=== PATIENT | male | born 1950 | race Caucasian/White ===

== ENCOUNTER 2019-07-09 18:53 | Inpatient (IN) | payer OTHER ==
--- OUTSIDE RECORDS SUMMARY | 2019-07-09 18:58 | XMS REPORT ---
:1950 [facility] Address [address] [place] [address] Care Team Providers Name Role Phone PAIGE BETTENCOURTNCER Unavailable Unavailable Problems This patient has no known problems. Allergies, Adverse Reactions, Alerts This patient has no known allergies or adverse reactions. Medications This patient has no known medications. Results Test Description Test Time Test Comments Text Results Atomic Results Result Comments MAGNESIUM 2016-12-26 05:16:00 Test Item Value Reference Range Comments MAGNESIUM (BEAKER) (test owod=291) 2.0 mg/dL 1.6-2.6 BASIC METABOLIC [id number] 05:16:00 Test Item Value Reference Range Comments SODIUM (BEAKER) (test 139 meq/L 136-145 shgn=310) POTASSIUM (BEAKER) (test 4.4 meq/L 3.5-5.1 niao=922) CHLORIDE (BEAKER) (test 107 meq/L 98-107 ubmp=705) CO2 (BEAKER) (test 25 meq/L 22-29 lyyf=071) BLOOD UREA NITROGEN 17 mg/dL 7-21 (BEAKER) (test rkdx=470) CREATININE (BEAKER) (test 0.82 mg/dL 0.57-1.25 nbva=354) GLUCOSE RANDOM (BEAKER) 106 mg/dL 70-105 (test xcgq=650) CALCIUM (BEAKER) (test 8.5 mg/dL 8.4-10.2 oiot=248) EGFR (BEAKER) (test 95 mL/min/1.73 sq m ESTIMATED GFR IS NOT qzax=7815) ACCURATE CREATININE CLEARANCE IN PREDICTING GLOMERULAR FILTRATION RATE. ESTIMATED GFR IS NOT APPLICABLE FOR DIALYSIS PATIENTS. CBC W/PLT COUNT & AUTO [id number] 04:59:00 Test Item Value Reference Range Comments WHITE BLOOD CELL COUNT (BEAKER) (test dwqy=123) 12.6 K/ L 4.0-10.0 RED BLOOD CELL COUNT (BEAKER) (test gbux=072) 3.12 M/ L 4.20-5.80 HEMOGLOBIN (BEAKER) (test nflf=795) 9.5 GM/DL 13.0-16.8 HEMATOCRIT (BEAKER) (test ozzz=366) 28.9 % 40.0-50.0 MEAN CORPUSCULAR VOLUME (BEAKER) (test hzhh=499) 92.8 fL 82.0-98.0 MEAN CORPUSCULAR HEMOGLOBIN (BEAKER) (test 30.5 pg 27.0-33.0 fulj=843) MEAN CORPUSCULAR HEMOGLOBIN CONC (BEAKER) (test 32.9 GM/DL 32.0-36.0 wqgv=255) RED CELL DISTRIBUTION WIDTH (BEAKER) (test 13.3 % 10.3-14.2 ppyv=290) PLATELET COUNT (BEAKER) (test eudo=447) 341 K/CU MM 150-430 MEAN PLATELET VOLUME (BEAKER) (test xmce=599) 7.3 fL 6.5-10.5 NUCLEATED RED BLOOD CELLS (BEAKER) (test 0 /100 WBC 0-0 xfdj=463) NEUTROPHILS RELATIVE PERCENT (BEAKER) (test 81 % gbdy=234) LYMPHOCYTES RELATIVE PERCENT (BEAKER) (test 11 % gwko=862) MONOCYTES RELATIVE PERCENT (BEAKER) (test 7 % nloi=058) EOSINOPHILS RELATIVE PERCENT (BEAKER) (test 1 % wbam=110) BASOPHILS RELATIVE PERCENT (BEAKER) (test 0 % syxm=979) NEUTROPHILS ABSOLUTE COUNT (BEAKER) (test 10.20 K/ L 1.80-8.00 fspx=722) LYMPHOCYTES ABSOLUTE COUNT (BEAKER) (test 1.42 K/ L 1.48-4.50 vzqd=939) MONOCYTES ABSOLUTE COUNT (BEAKER) (test 0.87 K/ L 0.00-1.30 tnek=011) EOSINOPHILS ABSOLUTE COUNT (BEAKER) (test 0.10 K/ L 0.00-0.50 tepa=962) BASOPHILS ABSOLUTE COUNT (BEAKER) (test 0.03 K/ L 0.00-0.20 mklv=615) 0.00PROTHROMBIN [id number] 04:50:00 Test Item Value Reference Range Comments PROTIME (BEAKER) (test vpen=345) 14.5 seconds 11.7-14.7 INR (BEAKER) (test flnp=271) 1.1 <=5.9 RECOMMENDED COUMADIN/WARFARIN INR THERAPY RANGESSTANDARD DOSE: 2.0 - 3.0 Includes: PROPHYLAXIS forvenous thrombosis, systemic embolization; TREATMENT for venous thrombosis and/or pulmonary embolus.HIGH RISK: Target INR is 2.5-3.5 for patients with mechanical heart valves.[id number] 04:55:00 Test Item Value Reference Range Comments MAGNESIUM (BEAKER) (test 2.1 mg/dL 1.6-2.6 Specimen slightly hemolyzed vwcb=869) BASIC METABOLIC [id number] 04:55:00 Test Item Value Reference Range Comments SODIUM (BEAKER) (test 138 meq/L 136-145 tudo=869) POTASSIUM (BEAKER) (test 4.6 meq/L 3.5-5.1 Specimen slightly rbmn=671) hemolyzed CHLORIDE (BEAKER) (test 102 meq/L 98-107 wkac=199) CO2 (BEAKER) (test 29 meq/L 22-29 nmbh=377) BLOOD UREA NITROGEN 13 mg/dL 7-21 (BEAKER) (test ahny=646) CREATININE (BEAKER) (test 0.87 mg/dL 0.57-1.25 Specimen slightly feit=276) hemolyzed GLUCOSE RANDOM (BEAKER) 175 mg/dL 70-105 (test gzxh=781) CALCIUM (BEAKER) (test 8.8 mg/dL 8.4-10.2 jvmm=081) EGFR (BEAKER) (test 88 mL/min/1.73 sq m ESTIMATED GFR IS NOT oscl=0578) ACCURATE CREATININE CLEARANCE IN PREDICTING GLOMERULAR FILTRATION RATE. ESTIMATED GFR IS NOT APPLICABLE FOR DIALYSIS PATIENTS. PROTHROMBIN [id number] 04:52:00 Test Item Value Reference Range Comments PROTIME (BEAKER) (test hsgw=356) 13.5 seconds 11.7-14.7 INR (BEAKER) (test lwul=733) 1.0 <=5.9 RECOMMENDED COUMADIN/WARFARIN INR THERAPY RANGESSTANDARD DOSE: 2.0 - 3.0 Includes: PROPHYLAXIS forvenous thrombosis, systemic embolization; TREATMENT for venous thrombosis and/or pulmonary embolus.HIGH RISK: Target INR is 2.5-3.5 for patients with mechanical heart valves.CBC W/PLT COUNT & AUTO [id number] 04:48:00 Test Item Value Reference Range Comments WHITE BLOOD CELL COUNT (BEAKER) (test atxd=791) 9.4 K/ L 4.0-10.0 RED BLOOD CELL COUNT (BEAKER) (test tbzx=095) 3.08 M/ L 4.20-5.80 HEMOGLOBIN (BEAKER) (test xhvb=245) 9.2 GM/DL 13.0-16.8 HEMATOCRIT (BEAKER) (test cuyt=280) 28.7 % 40.0-50.0 MEAN CORPUSCULAR VOLUME (BEAKER) (test wset=025) 93.1 fL 82.0-98.0 MEAN CORPUSCULAR HEMOGLOBIN (BEAKER) (test 30.0 pg 27.0-33.0 fhjy=999) MEAN CORPUSCULAR HEMOGLOBIN CONC (BEAKER) (test 32.2 GM/DL 32.0-36.0 haet=421) RED CELL DISTRIBUTION WIDTH (BEAKER) (test 11.9 % 10.3-14.2 qtaq=456) PLATELET COUNT (BEAKER) (test pxhf=160) 290 K/CU MM 150-430 MEAN PLATELET VOLUME (BEAKER) (test lkxm=753) 7.6 fL 6.5-10.5 NUCLEATED RED BLOOD CELLS (BEAKER) (test 0 /100 WBC 0-0 vrxf=615) NEUTROPHILS RELATIVE PERCENT (BEAKER) (test 85 % uffd=169) LYMPHOCYTES RELATIVE PERCENT (BEAKER) (test 8 % wsxd=598) MONOCYTES RELATIVE PERCENT (BEAKER) (test 6 % ehih=342) EOSINOPHILS RELATIVE PERCENT (BEAKER) (test 1 % cnqu=229) BASOPHILS RELATIVE PERCENT (BEAKER) (test 0 % pmjs=627) NEUTROPHILS ABSOLUTE COUNT (BEAKER) (test 7.99 K/ L 1.80-8.00 eqbd=743) LYMPHOCYTES ABSOLUTE COUNT (BEAKER) (test 0.74 K/ L 1.48-4.50 qyzh=678) MONOCYTES ABSOLUTE COUNT (BEAKER) (test 0.59 K/ L 0.00-1.30 awnx=578) EOSINOPHILS ABSOLUTE COUNT (BEAKER) (test 0.07 K/ L 0.00-0.50 xevc=615) BASOPHILS ABSOLUTE COUNT (BEAKER) (test 0.01 K/ L 0.00-0.20 jvsv=671) [id number] 15:22:00 Test Item Value Reference Range Comments POTASSIUM (BEAKER) (test tmxa=572) 4.1 meq/L 3.5-5.1 [id number] 15:22:00 Test Item Value Reference Range Comments MAGNESIUM (BEAKER) (test pcuq=790) 1.9 mg/dL 1.6-2.6 RESPIRATORY PANEL [id number] 13:24:00 Test Item Value Reference Range Comments HUMAN METAPNEUMOVIRUS (BEAKER) (test Not detected Not detected, Inconclusive ngbo=5057) RHINOVIRUS (BEAKER) (test svga=0527) Not detected Not detected, Inconclusive INFLUENZA A (BEAKER) (test Not detected Not detected, Inconclusive panq=6003) INFLUENZA A SUBTYPE H1 (BEAKER) Not detected Not detected, Inconclusive (test yusx=1760) INFLUENZA A SUBTYPE H3 (BEAKER) Not detected Not detected, Inconclusive (test tlig=9654) INFLUENZA A SUBTYPE H1-2009 (BEAKER) Not detected Not detected, Inconclusive (test kgho=8293) INFLUENZA B (BEAKER) (test Not detected Not detected, Inconclusive zkgx=4868) RESPIRATORY SYNCYTIAL VIRUS (BEAKER) Not detected Not detected, Inconclusive (test yylt=1977) PARAINFLUENZA VIRUS 1 (BEAKER) (test Not detected Not detected, Inconclusive agea=3304) PARAINFLUENZA VIRUS 2 (BEAKER) (test Not detected Not detected, Inconclusive modr=1944) PARAINFLUENZA VIRUS 3 (BEAKER) (test Not detected Not detected, Inconclusive oydm=6842) PARAINFLUENZA VIRUS 4 (BEAKER) (test Not detected Not detected, Inconclusive etel=9717) ADENOVIRUS (BEAKER) (test vmqk=2226) Not detected Not detected, Inconclusive CORONAVIRUS 229E (BEAKER) (test Not detected Not detected, Inconclusive xliu=1287) CORONAVIRUS HKU1 (BEAKER) (test Not detected Not detected, Inconclusive ewzj=3374) CORONAVIRUS NL63 (BEAKER) (test Not detected Not detected, Inconclusive oahv=0554) CORONAVIRUS OC43 (BEAKER) (test Not detected Not detected, Inconclusive jaeu=7092) BORDETELLA PERTUSSIS (BEAKER) (test Not detected Not detected, Inconclusive ivur=9848) CHLAMYDOPHILA PNEUMONIAE (BEAKER) Not detected Not detected, Inconclusive (test yenf=0053) MYCOPLASMA PNEUMONIAE (BEAKER) (test Not detected Not detected, Inconclusive xfuf=7728) CBC W/PLT COUNT & AUTO [id number] 05:41:00 Test Item Value Reference Range Comments WHITE BLOOD CELL COUNT (BEAKER) (test xyvz=151) 7.8 K/ L 4.0-10.0 RED BLOOD CELL COUNT (BEAKER) (test egwg=936) 3.02 M/ L 4.20-5.80 HEMOGLOBIN (BEAKER) (test rccr=864) 9.2 GM/DL 13.0-16.8 HEMATOCRIT (BEAKER) (test sqwr=534) 27.9 % 40.0-50.0 MEAN CORPUSCULAR VOLUME (BEAKER) (test entw=265) 92.4 fL 82.0-98.0 MEAN CORPUSCULAR HEMOGLOBIN (BEAKER) (test 30.5 pg 27.0-33.0 anoo=594) MEAN CORPUSCULAR HEMOGLOBIN CONC (BEAKER) (test 33.0 GM/DL 32.0-36.0 hfiw=144) RED CELL DISTRIBUTION WIDTH (BEAKER) (test 13.2 % 10.3-14.2 bbfg=425) PLATELET COUNT (BEAKER) (test afyt=697) 275 K/CU MM 150-430 MEAN PLATELET VOLUME (BEAKER) (test ejyz=550) 7.3 fL 6.5-10.5 NUCLEATED RED BLOOD CELLS (BEAKER) (test 0 /100 WBC 0-0 ugbq=857) NEUTROPHILS RELATIVE PERCENT (BEAKER) (test 64 % hyzm=993) LYMPHOCYTES RELATIVE PERCENT (BEAKER) (test 20 % cbvx=072) MONOCYTES RELATIVE PERCENT (BEAKER) (test 13 % fxcm=160) EOSINOPHILS RELATIVE PERCENT (BEAKER) (test 3 % jqaw=443) BASOPHILS RELATIVE PERCENT (BEAKER) (test 1 % tygj=632) NEUTROPHILS ABSOLUTE COUNT (BEAKER) (test 4.99 K/ L 1.80-8.00 hrtu=939) LYMPHOCYTES ABSOLUTE COUNT (BEAKER) (test 1.59 K/ L 1.48-4.50 szsq=573) MONOCYTES ABSOLUTE COUNT (BEAKER) (test 0.97 K/ L 0.00-1.30 qtao=003) EOSINOPHILS ABSOLUTE COUNT (BEAKER) (test 0.21 K/ L 0.00-0.50 mfgt=726) BASOPHILS ABSOLUTE COUNT (BEAKER) (test 0.04 K/ L 0.00-0.20 ggjm=685) 0.00PROTHROMBIN [id number] 05:13:00 Test Item Value Reference Range Comments PROTIME (BEAKER) (test msbo=153) 13.4 seconds 11.7-14.7 INR (BEAKER) (test jejl=328) 1.0 <=5.9 RECOMMENDED COUMADIN/WARFARIN INR THERAPY RANGESSTANDARD DOSE: 2.0 - 3.0 Includes: PROPHYLAXIS forvenous thrombosis, systemic embolization; TREATMENT for venous thrombosis and/or pulmonary embolus.HIGH RISK: Target INR is 2.5-3.5 for patients with mechanical heart valves.B-TYPE NATRIURETIC FACTOR (BNP)2016-11 05:11:00 Test Item Value Reference Range Comments B-TYPE NATRIURETIC PEPTIDE (BEAKER) (test 103 pg/mL 0-100 tjbf=900) [id number] 05:10:00 Test Item Value Reference Range Comments MAGNESIUM (BEAKER) (test scwh=023) 1.8 mg/dL 1.6-2.6 BASIC METABOLIC [id number] 05:10:00 Test Item Value Reference Range Comments SODIUM (BEAKER) (test 141 meq/L 136-145 dwih=377) POTASSIUM (BEAKER) (test 3.9 meq/L 3.5-5.1 ekbf=852) CHLORIDE (BEAKER) (test 102 meq/L 98-107 qyhc=182) CO2 (BEAKER) (test 33 meq/L 22-29 xcrs=238) BLOOD UREA NITROGEN 12 mg/dL 7-21 (BEAKER) (test rqom=700) CREATININE (BEAKER) (test 0.87 mg/dL 0.57-1.25 iped=469) GLUCOSE RANDOM (BEAKER) 110 mg/dL 70-105 (test ptoz=628) CALCIUM (BEAKER) (test 8.6 mg/dL 8.4-10.2 vbil=755) EGFR (BEAKER) (test 88 mL/min/1.73 sq m ESTIMATED GFR IS NOT wqms=1460) ACCURATE CREATININE CLEARANCE IN PREDICTING GLOMERULAR FILTRATION RATE. ESTIMATED GFR IS NOT APPLICABLE FOR DIALYSIS PATIENTS. STREP PNEUMONIAE [id number] 19:33:00 Test Item Value Reference Range Comments STREP PNEUMONIAE ANTIGEN Presumptive negative for Presumptive negative for (BEAKER) (test pneumococcal pneumonia - pneumococcal pneumonia - tlhq=3171) see comment see commen Presumptive negative for pneumococcal pneumonia, suggesting no current or recent pneumococcal infection. Infection due to S. pneumoniae cannot be ruled out since the antigen present in the sample may be below the detection limit of the test.BLOOD GAS, [id number] 13:05:00 Test Item Value Reference Range Comments PH ARTERIAL (BEAKER) (test bnaa=740) 7.50 7.35-7.45 PCO2 ARTERIAL (BEAKER) (test hsny=268) 46 mmHg 35-45 PO2 ARTERIAL (BEAKER) (test yivs=295) 81 mmHg 80-90 O2 SATURATION ARTERIAL (BEAKER) (test rify=271) 96.7 % 96.0-97.0 HCO3 ARTERIAL (BEAKER) (test ycgt=567) 35 mmol/L 21-29 BASE EXCESS ARTERIAL (BEAKER) (test mjpb=990) 10.1 mmol/L -2.0-3.0 PATIENT TEMPERATURE (BEAKER) (test dwlv=7411) 36.8 C FIO2 (BEAKER) (test sgac=4736) 28.0 % [id number] 06:22:00 Test Item Value Reference Range Comments MAGNESIUM (BEAKER) (test nxpn=879) 1.8 mg/dL 1.6-2.6 BASIC METABOLIC [id number] 06:22:00 Test Item Value Reference Range Comments SODIUM (BEAKER) (test 139 meq/L 136-145 qtbp=269) POTASSIUM (BEAKER) (test 4.1 meq/L 3.5-5.1 mfmi=550) CHLORIDE (BEAKER) (test 102 meq/L 98-107 ulad=426) CO2 (BEAKER) (test 29 meq/L 22-29 sbtx=340) BLOOD UREA NITROGEN 10 mg/dL 7-21 (BEAKER) (test nhzb=738) CREATININE (BEAKER) (test 0.83 mg/dL 0.57-1.25 jaos=406) GLUCOSE RANDOM (BEAKER) 98 mg/dL 70-105 (test oizw=557) CALCIUM (BEAKER) (test 8.4 mg/dL 8.4-10.2 bluc=880) EGFR (BEAKER) (test 93 mL/min/1.73 sq m ESTIMATED GFR IS NOT hyhy=7023) ACCURATE CREATININE CLEARANCE IN PREDICTING GLOMERULAR FILTRATION RATE. ESTIMATED GFR IS NOT APPLICABLE FOR DIALYSIS PATIENTS. CBC W/PLT COUNT & AUTO [id number] 06:19:00 Test Item Value Reference Range Comments WHITE BLOOD CELL COUNT (BEAKER) (test otfk=885) 6.6 K/ L 4.0-10.0 RED BLOOD CELL COUNT (BEAKER) (test bvvm=720) 3.09 M/ L 4.20-5.80 HEMOGLOBIN (BEAKER) (test xyfz=397) 9.2 GM/DL 13.0-16.8 HEMATOCRIT (BEAKER) (test yhky=096) 28.8 % 40.0-50.0 MEAN CORPUSCULAR VOLUME (BEAKER) (test eywu=559) 93.1 fL 82.0-98.0 MEAN CORPUSCULAR HEMOGLOBIN (BEAKER) (test 29.8 pg 27.0-33.0 zunk=472) MEAN CORPUSCULAR HEMOGLOBIN CONC (BEAKER) (test 32.0 GM/DL 32.0-36.0 jeol=001) RED CELL DISTRIBUTION WIDTH (BEAKER) (test 12.0 % 10.3-14.2 rvtk=071) PLATELET COUNT (BEAKER) (test uvfe=676) 242 K/CU MM 150-430 MEAN PLATELET VOLUME (BEAKER) (test chsp=600) 7.2 fL 6.5-10.5 NUCLEATED RED BLOOD CELLS (BEAKER) (test 0 /100 WBC 0-0 baoz=778) NEUTROPHILS RELATIVE PERCENT (BEAKER) (test 60 % vvck=427) LYMPHOCYTES RELATIVE PERCENT (BEAKER) (test 21 % uukl=878) MONOCYTES RELATIVE PERCENT (BEAKER) (test 15 % pxqi=651) EOSINOPHILS RELATIVE PERCENT (BEAKER) (test 3 % pldr=584) BASOPHILS RELATIVE PERCENT (BEAKER) (test 1 % wzbm=802) NEUTROPHILS ABSOLUTE COUNT (BEAKER) (test 3.99 K/ L 1.80-8.00 enbr=194) LYMPHOCYTES ABSOLUTE COUNT (BEAKER) (test 1.41 K/ L 1.48-4.50 jicc=942) MONOCYTES ABSOLUTE COUNT (BEAKER) (test 0.98 K/ L 0.00-1.30 zglx=992) EOSINOPHILS ABSOLUTE COUNT (BEAKER) (test 0.19 K/ L 0.00-0.50 gvpn=142) BASOPHILS ABSOLUTE COUNT (BEAKER) (test 0.03 K/ L 0.00-0.20 hkeu=975) 0.00PROTHROMBIN [id number] 05:55:00 Test Item Value Reference Range Comments PROTIME (BEAKER) (test xaxi=860) 13.2 seconds 11.7-14.7 INR (BEAKER) (test lfig=855) 1.0 <=5.9 RECOMMENDED COUMADIN/WARFARIN INR THERAPY RANGESSTANDARD DOSE: 2.0 - 3.0 Includes: PROPHYLAXIS forvenous thrombosis, systemic embolization; TREATMENT for venous thrombosis and/or pulmonary embolus.HIGH RISK: Target INR is 2.5-3.5 for patients with mechanical heart valves.[id number] 05:39:00 Test Item Value Reference Range Comments MAGNESIUM (BEAKER) (test ydde=420) 1.7 mg/dL 1.6-2.6 BASIC METABOLIC [id number] 05:39:00 Test Item Value Reference Range Comments SODIUM (BEAKER) (test 139 meq/L 136-145 cugz=642) POTASSIUM (BEAKER) (test 3.9 meq/L 3.5-5.1 dkzx=271) CHLORIDE (BEAKER) (test 104 meq/L 98-107 bowq=459) CO2 (BEAKER) (test 30 meq/L 22-29 kqxx=200) BLOOD UREA NITROGEN 9 mg/dL 7-21 (BEAKER) (test bjov=180) CREATININE (BEAKER) (test 0.79 mg/dL 0.57-1.25 ihzx=199) GLUCOSE RANDOM (BEAKER) 101 mg/dL 70-105 (test xxrb=208) CALCIUM (BEAKER) (test 8.0 mg/dL 8.4-10.2 phct=174) EGFR (BEAKER) (test 99 mL/min/1.73 sq m ESTIMATED GFR IS NOT wvza=6077) ACCURATE CREATININE CLEARANCE IN PREDICTING GLOMERULAR FILTRATION RATE. ESTIMATED GFR IS NOT APPLICABLE FOR DIALYSIS PATIENTS. CBC W/PLT COUNT & AUTO [id number] 05:33:00 Test Item Value Reference Range Comments WHITE BLOOD CELL COUNT (BEAKER) (test mkcg=062) 6.5 K/ L 4.0-10.0 RED BLOOD CELL COUNT (BEAKER) (test blqw=471) 2.69 M/ L 4.20-5.80 HEMOGLOBIN (BEAKER) (test aowv=836) 8.2 GM/DL 13.0-16.8 HEMATOCRIT (BEAKER) (test zhtu=196) 25.3 % 40.0-50.0 MEAN CORPUSCULAR VOLUME (BEAKER) (test iycx=405) 94.0 fL 82.0-98.0 MEAN CORPUSCULAR HEMOGLOBIN (BEAKER) (test 30.4 pg 27.0-33.0 uwma=815) MEAN CORPUSCULAR HEMOGLOBIN CONC (BEAKER) (test 32.3 GM/DL 32.0-36.0 mscf=204) RED CELL DISTRIBUTION WIDTH (BEAKER) (test 12.0 % 10.3-14.2 uzrf=490) PLATELET COUNT (BEAKER) (test njub=939) 201 K/CU MM 150-430 MEAN PLATELET VOLUME (BEAKER) (test bzar=306) 7.0 fL 6.5-10.5 NUCLEATED RED BLOOD CELLS (BEAKER) (test 0 /100 WBC 0-0 bmjp=684) NEUTROPHILS RELATIVE PERCENT (BEAKER) (test 59 % ihgz=203) LYMPHOCYTES RELATIVE PERCENT (BEAKER) (test 23 % cajw=178) MONOCYTES RELATIVE PERCENT (BEAKER) (test 15 % vgsh=819) EOSINOPHILS RELATIVE PERCENT (BEAKER) (test 2 % ndva=002) BASOPHILS RELATIVE PERCENT (BEAKER) (test 0 % brni=808) NEUTROPHILS ABSOLUTE COUNT (BEAKER) (test 3.89 K/ L 1.80-8.00 nbmw=929) LYMPHOCYTES ABSOLUTE COUNT (BEAKER) (test 1.52 K/ L 1.48-4.50 qpoo=961) MONOCYTES ABSOLUTE COUNT (BEAKER) (test 0.98 K/ L 0.00-1.30 tukv=533) EOSINOPHILS ABSOLUTE COUNT (BEAKER) (test 0.13 K/ L 0.00-0.50 zqwe=801) BASOPHILS ABSOLUTE COUNT (BEAKER) (test 0.02 K/ L 0.00-0.20 caju=308) 0.00PROTHROMBIN [id number] 05:19:00 Test Item Value Reference Range Comments PROTIME (BEAKER) (test qmcx=383) 14.6 seconds 11.7-14.7 INR (BEAKER) (test ypwj=065) 1.2 <=5.9 RECOMMENDED COUMADIN/WARFARIN INR THERAPY RANGESSTANDARD DOSE: 2.0 - 3.0 Includes: PROPHYLAXIS forvenous thrombosis, systemic embolization; TREATMENT for venous thrombosis and/or pulmonary embolus.HIGH RISK: Target INR is 2.5-3.5 for patients with mechanical heart valves.CBC W/PLT COUNT & AUTO [id number] 06:46:00 Test Item Value Reference Range Comments WHITE BLOOD CELL COUNT (BEAKER) (test wbuh=054) 8.3 K/ L 4.0-10.0 RED BLOOD CELL COUNT (BEAKER) (test ovel=169) 2.73 M/ L 4.20-5.80 HEMOGLOBIN (BEAKER) (test gunf=681) 8.3 GM/DL 13.0-16.8 HEMATOCRIT (BEAKER) (test hlhf=057) 25.7 % 40.0-50.0 MEAN CORPUSCULAR VOLUME (BEAKER) (test ztie=786) 94.3 fL 82.0-98.0 MEAN CORPUSCULAR HEMOGLOBIN (BEAKER) (test 30.5 pg 27.0-33.0 fnnj=810) MEAN CORPUSCULAR HEMOGLOBIN CONC (BEAKER) (test 32.4 GM/DL 32.0-36.0 vovu=312) RED CELL DISTRIBUTION WIDTH (BEAKER) (test 11.9 % 10.3-14.2 wygg=921) PLATELET COUNT (BEAKER) (test rmhd=234) 182 K/CU MM 150-430 MEAN PLATELET VOLUME (BEAKER) (test yxbh=060) 8.2 fL 6.5-10.5 NUCLEATED RED BLOOD CELLS (BEAKER) (test 0 /100 WBC 0-0 pwig=238) NEUTROPHILS RELATIVE PERCENT (BEAKER) (test 71 % vtsk=625) LYMPHOCYTES RELATIVE PERCENT (BEAKER) (test 13 % nbvt=028) MONOCYTES RELATIVE PERCENT (BEAKER) (test 14 % bkqo=681) EOSINOPHILS RELATIVE PERCENT (BEAKER) (test 2 % sidl=240) BASOPHILS RELATIVE PERCENT (BEAKER) (test 0 % lkug=529) NEUTROPHILS ABSOLUTE COUNT (BEAKER) (test 5.91 K/ L 1.80-8.00 kihd=289) LYMPHOCYTES ABSOLUTE COUNT (BEAKER) (test 1.09 K/ L 1.48-4.50 xajd=668) MONOCYTES ABSOLUTE COUNT (BEAKER) (test 1.14 K/ L 0.00-1.30 zagt=770) EOSINOPHILS ABSOLUTE COUNT (BEAKER) (test 0.17 K/ L 0.00-0.50 zuer=570) BASOPHILS ABSOLUTE COUNT (BEAKER) (test 0.02 K/ L 0.00-0.20 glwg=294) [id number] 05:34:00 Test Item Value Reference Range Comments MAGNESIUM (BEAKER) (test ptpc=429) 2.0 mg/dL 1.6-2.6 BASIC METABOLIC [id number] 05:34:00 Test Item Value Reference Range Comments SODIUM (BEAKER) (test 139 meq/L 136-145 qhwb=084) POTASSIUM (BEAKER) (test 4.0 meq/L 3.5-5.1 lbhx=394) CHLORIDE (BEAKER) (test 107 meq/L 98-107 aqjw=087) CO2 (BEAKER) (test 27 meq/L 22-29 enym=991) BLOOD UREA NITROGEN 9 mg/dL 7-21 (BEAKER) (test kcjn=639) CREATININE (BEAKER) (test 0.81 mg/dL 0.57-1.25 dpfn=550) GLUCOSE RANDOM (BEAKER) 103 mg/dL 70-105 (test fiix=796) CALCIUM (BEAKER) (test 8.0 mg/dL 8.4-10.2 kgwe=832) EGFR (BEAKER) (test 96 mL/min/1.73 sq m ESTIMATED GFR IS NOT pkev=1355) ACCURATE CREATININE CLEARANCE IN PREDICTING GLOMERULAR FILTRATION RATE. ESTIMATED GFR IS NOT APPLICABLE FOR DIALYSIS PATIENTS. PROTHROMBIN [id number] 05:21:00 Test Item Value Reference Range Comments PROTIME (BEAKER) (test xpla=667) 14.5 seconds 11.7-14.7 INR (BEAKER) (test blcr=200) 1.1 <=5.9 RECOMMENDED COUMADIN/WARFARIN INR THERAPY RANGESSTANDARD DOSE: 2.0 - 3.0 Includes: PROPHYLAXIS forvenous thrombosis, systemic embolization; TREATMENT for venous thrombosis and/or pulmonary embolus.HIGH RISK: Target INR is 2.5-3.5 for patients with mechanical heart valves.VANCOMYCIN LEVEL, [id number] 17: 26:00 Test Item Value Reference Range Comments VANCOMYCIN TROUGH (BEAKER) (test dcql=005) 15.7 ug/mL 10.0-20.0 [id number] 17:22:00 Test Item Value Reference Range Comments POTASSIUM (BEAKER) (test ppyh=220) 3.8 meq/L 3.5-5.1 [id number] 17:22:00 Test Item Value Reference Range Comments MAGNESIUM (BEAKER) (test juqy=757) 2.0 mg/dL 1.6-2.6 CBC W/PLT COUNT & AUTO [id number] 05:09:00 Test Item Value Reference Range Comments WHITE BLOOD CELL COUNT (BEAKER) (test pxxd=695) 8.5 K/ L 4.0-10.0 RED BLOOD CELL COUNT (BEAKER) (test jlap=331) 2.87 M/ L 4.20-5.80 HEMOGLOBIN (BEAKER) (test aqil=099) 8.6 GM/DL 13.0-16.8 HEMATOCRIT (BEAKER) (test zbrb=969) 26.9 % 40.0-50.0 MEAN CORPUSCULAR VOLUME (BEAKER) (test rbfv=246) 93.9 fL 82.0-98.0 MEAN CORPUSCULAR HEMOGLOBIN (BEAKER) (test 29.9 pg 27.0-33.0 jflc=423) MEAN CORPUSCULAR HEMOGLOBIN CONC (BEAKER) (test 31.8 GM/DL 32.0-36.0 bhrt=566) RED CELL DISTRIBUTION WIDTH (BEAKER) (test 11.9 % 10.3-14.2 ktkj=031) PLATELET COUNT (BEAKER) (test wbyg=628) 154 K/CU MM 150-430 MEAN PLATELET VOLUME (BEAKER) (test wcdt=480) 8.2 fL 6.5-10.5 NUCLEATED RED BLOOD CELLS (BEAKER) (test 0 /100 WBC 0-0 rfph=880) NEUTROPHILS RELATIVE PERCENT (BEAKER) (test 70 % qvsq=933) LYMPHOCYTES RELATIVE PERCENT (BEAKER) (test 13 % uwuz=065) MONOCYTES RELATIVE PERCENT (BEAKER) (test 15 % hvht=392) EOSINOPHILS RELATIVE PERCENT (BEAKER) (test 2 % gqlc=710) BASOPHILS RELATIVE PERCENT (BEAKER) (test 0 % kdoc=821) NEUTROPHILS ABSOLUTE COUNT (BEAKER) (test 5.95 K/ L 1.80-8.00 rgvc=192) LYMPHOCYTES ABSOLUTE COUNT (BEAKER) (test 1.07 K/ L 1.48-4.50 ynuq=775) MONOCYTES ABSOLUTE COUNT (BEAKER) (test 1.27 K/ L 0.00-1.30 myct=047) EOSINOPHILS ABSOLUTE COUNT (BEAKER) (test 0.16 K/ L 0.00-0.50 wglt=460) BASOPHILS ABSOLUTE COUNT (BEAKER) (test 0.03 K/ L 0.00-0.20 rgvn=740) 0.00BASIC METABOLIC [id number] 05:05:00 Test Item Value Reference Range Comments SODIUM (BEAKER) (test 137 meq/L 136-145 buof=041) POTASSIUM (BEAKER) (test 3.6 meq/L 3.5-5.1 gbrc=789) CHLORIDE (BEAKER) (test 105 meq/L 98-107 mieq=450) CO2 (BEAKER) (test 28 meq/L 22-29 tukp=906) BLOOD UREA NITROGEN 9 mg/dL 7-21 (BEAKER) (test kuxd=354) CREATININE (BEAKER) (test 0.83 mg/dL 0.57-1.25 efet=102) GLUCOSE RANDOM (BEAKER) 118 mg/dL 70-105 (test aqlv=997) CALCIUM (BEAKER) (test 7.7 mg/dL 8.4-10.2 nblb=243) EGFR (BEAKER) (test 93 mL/min/1.73 sq m ESTIMATED GFR IS NOT aiah=7020) ACCURATE CREATININE CLEARANCE IN PREDICTING GLOMERULAR FILTRATION RATE. ESTIMATED GFR IS NOT APPLICABLE FOR DIALYSIS PATIENTS. [id number] 05:04:00 Test Item Value Reference Range Comments MAGNESIUM (BEAKER) (test dyep=225) 2.0 mg/dL 1.6-2.6 PROTHROMBIN TIME/[id number] 04:53:00 Test Item Value Reference Range Comments PROTIME (BEAKER) (test jibq=894) 14.7 seconds 11.7-14.7 INR (BEAKER) (test fewf=635) 1.2 <=5.9 RECOMMENDED COUMADIN/WARFARIN INR THERAPY RANGESSTANDARD DOSE: 2.0 - 3.0 Includes: PROPHYLAXIS forvenous thrombosis, systemic embolization; TREATMENT for venous thrombosis and/or pulmonary embolus.HIGH RISK: Target INR is 2.5-3.5 for patients with mechanical heart valves.TISSUE [id number] 14:10: 00Surgical Pathology Report Case: [id number] Authorizing Provider: Paige Bettencourt MD Collected : 12/17/2016 1808 Ordering Location: [address] Received: 12/18/2016 0711 Pathologist: Gris Castro MD Specimens: A) - Lung, Right Upper Lobe, right upper lobe resection B) - Lung, Right Upper Lobe, right upper lobe wedge no. 2 A. LUNG, RIGHT UPPER LOBE, WEDGE RESECTION: - DIFFUSE, PROMINENTLY PERIPHERAL FIBROSIS, WITH CHRONIC INFLAMMATION, HEMORRHAGE AND REACTIVE CHANGES,CONSISTENT WITH PULMONARY BLEBS , AND REACTION TO PNEUMOTHORAX B. LUNG, RIGHT UPPER LOBE, WEDGE RESECTION # 2: - DIFFUSE PROMINENTLY PERIPHERAL FIBROSIS, CHRONIC INFLAMMATION, HEMORRHAGE AND REACTIVE CHANGES; FEATURES OF PULMONARY BLEBS, REACTION TO PNEUMOTHORAX Some of the changes in this patient's lungs are consistent with chronic obstructive pulmonary disease, with varying amounts of fibrosis, emphysematous changes and hemosiderin, and reactive changes. [id number] X 2Per [facility] notes: Thaddeus Ferguson is a 66 y.o. male with PMH significant for COPD , who recently had aspontaneous pneumothorax approximately 2 weeks ago, and presented again this week to an OSH with recurrent pneumothorax on the right in the setting of a COPD exacerbation. Operative finding: numerous blebs in the right upper lobe apex.A. Right upper lobe wedgeB. Right upper lobe wedge # 2Specimen is received in two containers both labeled with the patient's information and received without formalin.Specimen A: Labeled "right upper lobe wedge" consists of a 5 gm wedge resection of lung measuring 5 x 1x 0.8 cm. The lung pleura is dark-red and intact. The staple line is inked blue. The specimen is serially sectioned showing homogeneous, garcia-hilliard cut surface. The specimen shows no distinct mass. The tissue is entirely submitted in A1 through A4.Specimen B: Labeled "right upper lobe wedge #2" consistsof a 4 gm wedge resection of lung measuring 4 x 1 x 1 cm. The staple line is inked blue. The pleura is garcia-red and intact. The cut surface is homogeneously garcia-red and spongy. There are no firm or suspicious areas seen. The specimen is entirely submitted in B1 through B3. CG/ewH&E stained sectionsshow pleural tissue and lung parenchyma, focally with some skeletal muscle, consistent with chest wall adhesions. There is diffuse fibrotic tissue, consistent with pleural blebs chronic inflammation, hemorrhage and mesothelial reactive changes. No malignancy is identified.[id number] 13:10:00 Test Item Value Reference Range Comments POTASSIUM (BEAKER) (test dnfm=226) 3.8 meq/L 3.5-5.1 [id number] 13:10:00 Test Item Value Reference Range Comments MAGNESIUM (BEAKER) (test whov=113) 1.9 mg/dL 1.6-2.6 BASIC METABOLIC [id number] 04:47:00 Test Item Value Reference Range Comments SODIUM (BEAKER) (test 138 meq/L 136-145 wnun=520) POTASSIUM (BEAKER) (test 3.7 meq/L 3.5-5.1 afgu=086) CHLORIDE (BEAKER) (test 103 meq/L 98-107 jeie=056) CO2 (BEAKER) (test 29 meq/L 22-29 twzn=903) BLOOD UREA NITROGEN 13 mg/dL 7-21 (BEAKER) (test kjzt=610) CREATININE (BEAKER) (test 0.76 mg/dL 0.57-1.25 ynba=440) GLUCOSE RANDOM (BEAKER) 116 mg/dL 70-105 (test abcu=897) CALCIUM (BEAKER) (test 7.9 mg/dL 8.4-10.2 xmud=454) EGFR (BEAKER) (test 103 mL/min/1.73 sq m ESTIMATED GFR IS NOT wugl=5198) ACCURATE CREATININE CLEARANCE IN PREDICTING GLOMERULAR FILTRATION RATE. ESTIMATED GFR IS NOT APPLICABLE FOR DIALYSIS PATIENTS. [id number] 04:46:00 Test Item Value Reference Range Comments MAGNESIUM (BEAKER) (test qrnw=212) 2.0 mg/dL 1.6-2.6 CBC W/PLT COUNT & AUTO [id number] 04:43:00 Test Item Value Reference Range Comments WHITE BLOOD CELL COUNT (BEAKER) (test twym=145) 9.4 K/ L 4.0-10.0 RED BLOOD CELL COUNT (BEAKER) (test hjig=000) 2.93 M/ L 4.20-5.80 HEMOGLOBIN (BEAKER) (test cmsd=891) 9.0 GM/DL 13.0-16.8 HEMATOCRIT (BEAKER) (test dvyn=271) 27.1 % 40.0-50.0 MEAN CORPUSCULAR VOLUME (BEAKER) (test npsc=490) 92.5 fL 82.0-98.0 MEAN CORPUSCULAR HEMOGLOBIN (BEAKER) (test 30.7 pg 27.0-33.0 bjkf=418) MEAN CORPUSCULAR HEMOGLOBIN CONC (BEAKER) (test 33.2 GM/DL 32.0-36.0 wcpo=851) RED CELL DISTRIBUTION WIDTH (BEAKER) (test 11.8 % 10.3-14.2 fqhc=309) PLATELET COUNT (BEAKER) (test ujjy=640) 147 K/CU MM 150-430 MEAN PLATELET VOLUME (BEAKER) (test awtp=757) 8.1 fL 6.5-10.5 NUCLEATED RED BLOOD CELLS (BEAKER) (test 0 /100 WBC 0-0 dtyh=942) NEUTROPHILS RELATIVE PERCENT (BEAKER) (test 71 % fatn=577) LYMPHOCYTES RELATIVE PERCENT (BEAKER) (test 11 % csqu=009) MONOCYTES RELATIVE PERCENT (BEAKER) (test 16 % ypab=086) EOSINOPHILS RELATIVE PERCENT (BEAKER) (test 1 % mcap=636) BASOPHILS RELATIVE PERCENT (BEAKER) (test 0 % tjrv=604) NEUTROPHILS ABSOLUTE COUNT (BEAKER) (test 6.70 K/ L 1.80-8.00 zvio=494) LYMPHOCYTES ABSOLUTE COUNT (BEAKER) (test 1.07 K/ L 1.48-4.50 omru=878) MONOCYTES ABSOLUTE COUNT (BEAKER) (test 1.48 K/ L 0.00-1.30 syju=423) EOSINOPHILS ABSOLUTE COUNT (BEAKER) (test 0.14 K/ L 0.00-0.50 rsvr=155) BASOPHILS ABSOLUTE COUNT (BEAKER) (test 0.02 K/ L 0.00-0.20 aerd=732) 0.00PROTHROMBIN [id number] 04:40:00 Test Item Value Reference Range Comments PROTIME (BEAKER) (test rolv=928) 15.5 seconds 11.7-14.7 INR (BEAKER) (test vvcc=922) 1.2 <=5.9 RECOMMENDED COUMADIN/WARFARIN INR THERAPY RANGESSTANDARD DOSE: 2.0 - 3.0 Includes: PROPHYLAXIS forvenous thrombosis, systemic embolization; TREATMENT for venous thrombosis and/or pulmonary embolus.HIGH RISK: Target INR is 2.5-3.5 for patients with mechanical heart valves.BASIC METABOLIC [id number] 16:11: 00 Test Item Value Reference Range Comments SODIUM (BEAKER) (test 137 meq/L 136-145 okjd=773) POTASSIUM (BEAKER) (test 4.0 meq/L 3.5-5.1 sejl=013) CHLORIDE (BEAKER) (test 103 meq/L 98-107 etrx=460) CO2 (BEAKER) (test 29 meq/L 22-29 yvkn=266) BLOOD UREA NITROGEN 17 mg/dL 7-21 (BEAKER) (test hmtl=790) CREATININE (BEAKER) (test 0.76 mg/dL 0.57-1.25 zazq=523) GLUCOSE RANDOM (BEAKER) 122 mg/dL 70-105 (test ldei=703) CALCIUM (BEAKER) (test 8.1 mg/dL 8.4-10.2 ocjv=450) EGFR (BEAKER) (test 103 mL/min/1.73 sq m ESTIMATED GFR IS NOT prvq=7567) ACCURATE CREATININE CLEARANCE IN PREDICTING GLOMERULAR FILTRATION RATE. ESTIMATED GFR IS NOT APPLICABLE FOR DIALYSIS PATIENTS. BLOOD GAS, [id number] 09:14:00 Test Item Value Reference Range Comments PH ARTERIAL (BEAKER) (test mtkk=486) 7.48 7.35-7.45 PCO2 ARTERIAL (BEAKER) (test phiy=843) 30 mmHg 35-45 PO2 ARTERIAL (BEAKER) (test bbob=430) 149 mmHg 80-90 O2 SATURATION ARTERIAL (BEAKER) (test kkzk=718) 99.1 % 96.0-97.0 HCO3 ARTERIAL (BEAKER) (test dgru=719) 22 mmol/L 21-29 BASE EXCESS ARTERIAL (BEAKER) (test aluq=178) -0.5 mmol/L -2.0-3.0 PATIENT TEMPERATURE (BEAKER) (test oaxf=0876) 37.0 C FIO2 (BEAKER) (test xmxz=6138) 40.0 % CBC W/PLT COUNT & AUTO [id number] 03:51:00 Test Item Value Reference Range Comments WHITE BLOOD CELL COUNT (BEAKER) (test kucb=407) 9.5 K/ L 4.0-10.0 RED BLOOD CELL COUNT (BEAKER) (test byyh=158) 3.45 M/ L 4.20-5.80 HEMOGLOBIN (BEAKER) (test tncu=255) 10.2 GM/DL 13.0-16.8 HEMATOCRIT (BEAKER) (test kcfd=550) 31.5 % 40.0-50.0 MEAN CORPUSCULAR VOLUME (BEAKER) (test daxv=965) 91.4 fL 82.0-98.0 MEAN CORPUSCULAR HEMOGLOBIN (BEAKER) (test 29.7 pg 27.0-33.0 vrmu=737) MEAN CORPUSCULAR HEMOGLOBIN CONC (BEAKER) (test 32.5 GM/DL 32.0-36.0 cdwc=298) RED CELL DISTRIBUTION WIDTH (BEAKER) (test 13.0 % 10.3-14.2 puwj=649) PLATELET COUNT (BEAKER) (test refh=120) 173 K/CU MM 150-430 MEAN PLATELET VOLUME (BEAKER) (test jwqe=834) 8.1 fL 6.5-10.5 NUCLEATED RED BLOOD CELLS (BEAKER) (test 0 /100 WBC 0-0 oaop=120) NEUTROPHILS RELATIVE PERCENT (BEAKER) (test 78 % vvad=448) LYMPHOCYTES RELATIVE PERCENT (BEAKER) (test 9 % himh=269) MONOCYTES RELATIVE PERCENT (BEAKER) (test 12 % iytd=642) EOSINOPHILS RELATIVE PERCENT (BEAKER) (test 1 % qrtd=478) BASOPHILS RELATIVE PERCENT (BEAKER) (test 0 % pfoo=420) NEUTROPHILS ABSOLUTE COUNT (BEAKER) (test 7.41 K/ L 1.80-8.00 mvoj=739) LYMPHOCYTES ABSOLUTE COUNT (BEAKER) (test 0.84 K/ L 1.48-4.50 lliy=493) MONOCYTES ABSOLUTE COUNT (BEAKER) (test 1.11 K/ L 0.00-1.30 akwz=236) EOSINOPHILS ABSOLUTE COUNT (BEAKER) (test 0.09 K/ L 0.00-0.50 rhwo=146) BASOPHILS ABSOLUTE COUNT (BEAKER) (test 0.02 K/ L 0.00-0.20 ygdh=016) 0.00PROTHROMBIN [id number] 03:50:00 Test Item Value Reference Range Comments PROTIME (BEAKER) (test jmcn=851) 13.6 seconds 11.7-14.7 INR (BEAKER) (test vtdw=142) 1.1 <=5.9 RECOMMENDED COUMADIN/WARFARIN INR THERAPY RANGESSTANDARD DOSE: 2.0 - 3.0 Includes: PROPHYLAXIS forvenous thrombosis, systemic embolization; TREATMENT for venous thrombosis and/or pulmonary embolus.HIGH RISK: Target INR is 2.5-3.5 for patients with mechanical heart valves.[id number] 03:48:00 Test Item Value Reference Range Comments MAGNESIUM (BEAKER) (test lbai=048) 2.2 mg/dL 1.6-2.6 BASIC METABOLIC [id number] 03:48:00 Test Item Value Reference Range Comments SODIUM (BEAKER) (test 136 meq/L 136-145 rmpv=658) POTASSIUM (BEAKER) (test 4.0 meq/L 3.5-5.1 ldyw=749) CHLORIDE (BEAKER) (test 102 meq/L 98-107 tqlz=664) CO2 (BEAKER) (test 26 meq/L 22-29 fhow=315) BLOOD UREA NITROGEN 15 mg/dL 7-21 (BEAKER) (test uukv=744) CREATININE (BEAKER) (test 0.83 mg/dL 0.57-1.25 bfhb=483) GLUCOSE RANDOM (BEAKER) 106 mg/dL 70-105 (test adxk=255) CALCIUM (BEAKER) (test 8.0 mg/dL 8.4-10.2 vspt=589) EGFR (BEAKER) (test 93 mL/min/1.73 sq m ESTIMATED GFR IS NOT lquw=3954) ACCURATE CREATININE CLEARANCE IN PREDICTING GLOMERULAR FILTRATION RATE. ESTIMATED GFR IS NOT APPLICABLE FOR DIALYSIS PATIENTS. [id number] 21:20:00 Test Item Value Reference Range Comments PHOSPHORUS (BEAKER) (test pzux=283) 3.4 mg/dL 2.3-4.7 [id number] 21:20:00 Test Item Value Reference Range Comments MAGNESIUM (BEAKER) (test pgxv=038) 1.6 mg/dL 1.6-2.6 BASIC METABOLIC [id number] 21:20:00 Test Item Value Reference Range Comments SODIUM (BEAKER) (test 138 meq/L 136-145 fpov=208) POTASSIUM (BEAKER) (test 4.2 meq/L 3.5-5.1 qfhr=661) CHLORIDE (BEAKER) (test 104 meq/L 98-107 tlmd=206) CO2 (BEAKER) (test 23 meq/L 22-29 jgcn=276) BLOOD UREA NITROGEN 11 mg/dL 7-21 (BEAKER) (test mwmk=726) CREATININE (BEAKER) (test 0.75 mg/dL 0.57-1.25 iseg=833) GLUCOSE RANDOM (BEAKER) 121 mg/dL 70-105 (test dpnx=160) CALCIUM (BEAKER) (test 8.3 mg/dL 8.4-10.2 fudc=549) EGFR (BEAKER) (test 105 mL/min/1.73 sq m ESTIMATED GFR IS NOT dmvs=0837) ACCURATE CREATININE CLEARANCE IN PREDICTING GLOMERULAR FILTRATION RATE. ESTIMATED GFR IS NOT APPLICABLE FOR DIALYSIS PATIENTS. CBC W/PLT COUNT & AUTO [id number] 20:58:00 Test Item Value Reference Range Comments WHITE BLOOD CELL COUNT (BEAKER) (test afvj=779) 22.1 K/ L 4.0-10.0 RED BLOOD CELL COUNT (BEAKER) (test nqmi=067) 4.18 M/ L 4.20-5.80 HEMOGLOBIN (BEAKER) (test ubcb=948) 12.4 GM/DL 13.0-16.8 HEMATOCRIT (BEAKER) (test ibfu=681) 38.6 % 40.0-50.0 MEAN CORPUSCULAR VOLUME (BEAKER) (test bquo=913) 92.2 fL 82.0-98.0 MEAN CORPUSCULAR HEMOGLOBIN (BEAKER) (test 29.5 pg 27.0-33.0 uwjv=197) MEAN CORPUSCULAR HEMOGLOBIN CONC (BEAKER) (test 32.0 GM/DL 32.0-36.0 tpam=932) RED CELL DISTRIBUTION WIDTH (BEAKER) (test 13.1 % 10.3-14.2 xtsn=143) PLATELET COUNT (BEAKER) (test jruu=278) 245 K/CU MM 150-430 MEAN PLATELET VOLUME (BEAKER) (test iulr=680) 8.2 fL 6.5-10.5 NUCLEATED RED BLOOD CELLS (BEAKER) (test 0 /100 WBC 0-0 vejw=457) NEUTROPHILS RELATIVE PERCENT (BEAKER) (test 86 % stka=116) LYMPHOCYTES RELATIVE PERCENT (BEAKER) (test 6 % xdry=148) MONOCYTES RELATIVE PERCENT (BEAKER) (test 6 % womy=210) EOSINOPHILS RELATIVE PERCENT (BEAKER) (test 1 % oxpq=166) BASOPHILS RELATIVE PERCENT (BEAKER) (test 0 % rixp=712) NEUTROPHILS ABSOLUTE COUNT (BEAKER) (test 18.90 K/ L 1.80-8.00 vjae=124) LYMPHOCYTES ABSOLUTE COUNT (BEAKER) (test 1.43 K/ L 1.48-4.50 duml=251) MONOCYTES ABSOLUTE COUNT (BEAKER) (test 1.38 K/ L 0.00-1.30 crnf=765) EOSINOPHILS ABSOLUTE COUNT (BEAKER) (test 0.29 K/ L 0.00-0.50 kdha=104) BASOPHILS ABSOLUTE COUNT (BEAKER) (test 0.04 K/ L 0.00-0.20 cjhk=785) 0.00BLOOD GAS, [id number] 20:48:00 Test Item Value Reference Range Comments PH ARTERIAL (BEAKER) (test amdg=759) 7.31 7.35-7.45 PCO2 ARTERIAL (BEAKER) (test xltl=735) 54 mmHg 35-45 PO2 ARTERIAL (BEAKER) (test hrmf=242) 216 mmHg 80-90 O2 SATURATION ARTERIAL (BEAKER) (test qqth=902) 99.3 % 96.0-97.0 HCO3 ARTERIAL (BEAKER) (test abnn=805) 27 mmol/L 21-29 BASE EXCESS ARTERIAL (BEAKER) (test roqe=396) -0.5 mmol/L -2.0-3.0 PATIENT TEMPERATURE (BEAKER) (test ueuo=9719) 36.6 C FIO2 (BEAKER) (test ahmz=9383) 60.0 % BLOOD GAS, [id number] 17:21:00 Test Item Value Reference Range Comments PH ARTERIAL (BEAKER) (test bylw=242) 7.37 7.35-7.45 PCO2 ARTERIAL (BEAKER) (test ofah=305) 54 mmHg 35-45 PO2 ARTERIAL (BEAKER) (test ebjs=995) 128 mmHg 80-90 O2 SATURATION ARTERIAL (BEAKER) (test rjsr=708) 98.5 % 96.0-97.0 HCO3 ARTERIAL (BEAKER) (test qoeq=858) 31 mmol/L 21-29 BASE EXCESS ARTERIAL (BEAKER) (test qxuv=090) 4.1 mmol/L -2.0-3.0 PATIENT TEMPERATURE (BEAKER) (test zwwz=5005) 36.5 C FIO2 (BEAKER) (test hqrm=6217) 100.0 % SODIUM NA-STAT [id number] 17:21:00 Test Item Value Reference Range Comments SODIUM (BEAKER) (test pzht=227) 133 meq/L 135-148 HGB/HCT (H&H) - STAT [id number] 17:21:00 Test Item Value Reference Range Comments HEMOGLOBIN (BEAKER) (test wqkc=744) 10.5 g/dL 13.0-16.8 HEMATOCRIT (BEAKER) (test ykco=753) 31.0 % 40.0-50.0 CALCIUM, [id number] 17:21:00 Test Item Value Reference Range Comments CALCIUM IONIZED (BEAKER) (test gkbq=472) 1.06 mmol/L 1.12-1.27 PH, BLOOD (BEAKER) (test wlwt=6694) 7.37 GLUCOSE-STAT [id number] 17:20:00 Test Item Value Reference Range Comments GLUCOSE RANDOM (BEAKER) (test zrgb=363) 91 mg/dL 70-110 POTASSIUM-STAT [id number] 17:20:00 Test Item Value Reference Range Comments POTASSIUM (BEAKER) (test dgtj=521) 3.7 meq/L 3.6-5.5 [id number] 12:24:00 Test Item Value Reference Range Comments MAGNESIUM (BEAKER) (test 2.7 mg/dL 1.6-2.6 Specimen markedly hemolyzed dptq=606) [id number] 05:30:00 Test Item Value Reference Range Comments MAGNESIUM (BEAKER) (test vepl=779) 2.1 mg/dL 1.6-2.6 BASIC METABOLIC [id number] 05:30:00 Test Item Value Reference Range Comments SODIUM (BEAKER) (test 141 meq/L 136-145 wthq=168) POTASSIUM (BEAKER) (test 4.2 meq/L 3.5-5.1 fwgd=764) CHLORIDE (BEAKER) (test 103 meq/L 98-107 fpfk=965) CO2 (BEAKER) (test 32 meq/L 22-29 iuxd=664) BLOOD UREA NITROGEN 11 mg/dL 7-21 (BEAKER) (test jeza=140) CREATININE (BEAKER) (test 0.73 mg/dL 0.57-1.25 nrxy=972) GLUCOSE RANDOM (BEAKER) 93 mg/dL 70-105 (test rxiw=405) CALCIUM (BEAKER) (test 8.6 mg/dL 8.4-10.2 hgev=906) EGFR (BEAKER) (test 108 mL/min/1.73 sq m ESTIMATED GFR IS NOT ymyk=4027) ACCURATE CREATININE CLEARANCE IN PREDICTING GLOMERULAR FILTRATION RATE. ESTIMATED GFR IS NOT APPLICABLE FOR DIALYSIS PATIENTS. [id number] 05:16:00 Test Item Value Reference Range Comments PARTIAL THROMBOPLASTIN TIME (BEAKER) (test 26.5 seconds 22.5-36.0 tuxi=647) PROTHROMBIN [id number] 05:15:00 Test Item Value Reference Range Comments PROTIME (BEAKER) (test gkus=296) 12.6 seconds 11.7-14.7 INR (BEAKER) (test qkhx=823) 1.0 <=5.9 RECOMMENDED COUMADIN/WARFARIN INR THERAPY RANGESSTANDARD DOSE: 2.0 - 3.0 Includes: PROPHYLAXIS forvenous thrombosis, systemic embolization; TREATMENT for venous thrombosis and/or pulmonary embolus.HIGH RISK: Target INR is 2.5-3.5 for patients with mechanical heart valves.CBC W/PLT COUNT & AUTO [id number] 05:00:00 Test Item Value Reference Range Comments WHITE BLOOD CELL COUNT (BEAKER) (test fmey=450) 7.5 K/ L 4.0-10.0 RED BLOOD CELL COUNT (BEAKER) (test gxvd=384) 3.75 M/ L 4.20-5.80 HEMOGLOBIN (BEAKER) (test ckis=854) 11.3 GM/DL 13.0-16.8 HEMATOCRIT (BEAKER) (test myjp=145) 35.1 % 40.0-50.0 MEAN CORPUSCULAR VOLUME (BEAKER) (test fimp=940) 93.6 fL 82.0-98.0 MEAN CORPUSCULAR HEMOGLOBIN (BEAKER) (test 30.2 pg 27.0-33.0 wbyu=972) MEAN CORPUSCULAR HEMOGLOBIN CONC (BEAKER) (test 32.2 GM/DL 32.0-36.0 kkpt=508) RED CELL DISTRIBUTION WIDTH (BEAKER) (test 11.6 % 10.3-14.2 nsow=333) PLATELET COUNT (BEAKER) (test ihyn=457) 150 K/CU MM 150-430 MEAN PLATELET VOLUME (BEAKER) (test guuc=038) 8.7 fL 6.5-10.5 NUCLEATED RED BLOOD CELLS (BEAKER) (test 0 /100 WBC 0-0 lfpt=355) NEUTROPHILS RELATIVE PERCENT (BEAKER) (test 61 % tnbh=535) LYMPHOCYTES RELATIVE PERCENT (BEAKER) (test 23 % oktu=416) MONOCYTES RELATIVE PERCENT (BEAKER) (test 12 % gpyc=952) EOSINOPHILS RELATIVE PERCENT (BEAKER) (test 4 % azjp=476) BASOPHILS RELATIVE PERCENT (BEAKER) (test 1 % figt=849) NEUTROPHILS ABSOLUTE COUNT (BEAKER) (test 4.55 K/ L 1.80-8.00 hkfh=546) LYMPHOCYTES ABSOLUTE COUNT (BEAKER) (test 1.71 K/ L 1.48-4.50 ypbz=892) MONOCYTES ABSOLUTE COUNT (BEAKER) (test 0.91 K/ L 0.00-1.30 ejpb=943) EOSINOPHILS ABSOLUTE COUNT (BEAKER) (test 0.29 K/ L 0.00-0.50 wqnr=119) BASOPHILS ABSOLUTE COUNT (BEAKER) (test 0.05 K/ L 0.00-0.20 shjw=983) [id number] 16:11:00 Test Item Value Reference Range Comments MAGNESIUM (BEAKER) (test agxd=994) 2.0 mg/dL 1.6-2.6 [id number] 05:49:00 Test Item Value Reference Range Comments MAGNESIUM (BEAKER) (test vycs=050) 2.0 mg/dL 1.6-2.6 BASIC METABOLIC [id number] 05:49:00 Test Item Value Reference Range Comments SODIUM (BEAKER) (test 140 meq/L 136-145 rtur=345) POTASSIUM (BEAKER) (test 4.2 meq/L 3.5-5.1 yqyu=854) CHLORIDE (BEAKER) (test 106 meq/L 98-107 wfep=456) CO2 (BEAKER) (test 26 meq/L 22-29 sxlx=515) BLOOD UREA NITROGEN 10 mg/dL 7-21 (BEAKER) (test ekrw=910) CREATININE (BEAKER) (test 0.81 mg/dL 0.57-1.25 twtj=022) GLUCOSE RANDOM (BEAKER) 81 mg/dL 70-105 (test ovmb=627) CALCIUM (BEAKER) (test 8.4 mg/dL 8.4-10.2 ihae=305) EGFR (BEAKER) (test 96 mL/min/1.73 sq m ESTIMATED GFR IS NOT miqi=0387) ACCURATE CREATININE CLEARANCE IN PREDICTING GLOMERULAR FILTRATION RATE. ESTIMATED GFR IS NOT APPLICABLE FOR DIALYSIS PATIENTS. PROTHROMBIN TIME/[id number] 05:13:00 Test Item Value Reference Range Comments PROTIME (BEAKER) (test qolc=739) 12.9 seconds 11.7-14.7 INR (BEAKER) (test vwiu=022) 1.0 <=5.9 RECOMMENDED COUMADIN/WARFARIN INR THERAPY RANGESSTANDARD DOSE: 2.0 - 3.0 Includes: PROPHYLAXIS forvenous thrombosis, systemic embolization; TREATMENT for venous thrombosis and/or pulmonary embolus.HIGH RISK: Target INR is 2.5-3.5 for patients with mechanical heart valves.[id number] 05:13:00 Test Item Value Reference Range Comments PARTIAL THROMBOPLASTIN TIME (BEAKER) (test 30.7 seconds 22.5-36.0 pwjq=888) CBC W/PLT COUNT & AUTO [id number] 05:11:00 Test Item Value Reference Range Comments WHITE BLOOD CELL COUNT (BEAKER) (test elub=138) 8.5 K/ L 4.0-10.0 RED BLOOD CELL COUNT (BEAKER) (test gvhp=872) 3.70 M/ L 4.20-5.80 HEMOGLOBIN (BEAKER) (test meet=070) 11.5 GM/DL 13.0-16.8 HEMATOCRIT (BEAKER) (test znix=924) 34.8 % 40.0-50.0 MEAN CORPUSCULAR VOLUME (BEAKER) (test jkgo=081) 93.9 fL 82.0-98.0 MEAN CORPUSCULAR HEMOGLOBIN (BEAKER) (test 30.9 pg 27.0-33.0 xlwx=071) MEAN CORPUSCULAR HEMOGLOBIN CONC (BEAKER) (test 32.9 GM/DL 32.0-36.0 fbyw=065) RED CELL DISTRIBUTION WIDTH (BEAKER) (test 11.8 % 10.3-14.2 pwmb=275) PLATELET COUNT (BEAKER) (test hhls=469) 147 K/CU MM 150-430 MEAN PLATELET VOLUME (BEAKER) (test fzio=156) 8.5 fL 6.5-10.5 NUCLEATED RED BLOOD CELLS (BEAKER) (test 0 /100 WBC 0-0 umsr=336) NEUTROPHILS RELATIVE PERCENT (BEAKER) (test 60 % vxfb=692) LYMPHOCYTES RELATIVE PERCENT (BEAKER) (test 25 % qtyh=016) MONOCYTES RELATIVE PERCENT (BEAKER) (test 12 % ifst=081) EOSINOPHILS RELATIVE PERCENT (BEAKER) (test 2 % plql=678) BASOPHILS RELATIVE PERCENT (BEAKER) (test 0 % ldzy=699) NEUTROPHILS ABSOLUTE COUNT (BEAKER) (test 5.08 K/ L 1.80-8.00 mbyb=312) LYMPHOCYTES ABSOLUTE COUNT (BEAKER) (test 2.15 K/ L 1.48-4.50 esty=508) MONOCYTES ABSOLUTE COUNT (BEAKER) (test 1.03 K/ L 0.00-1.30 xzgl=424) EOSINOPHILS ABSOLUTE COUNT (BEAKER) (test 0.17 K/ L 0.00-0.50 ftml=789) BASOPHILS ABSOLUTE COUNT (BEAKER) (test 0.03 K/ L 0.00-0.20 rqpp=235) [id number] 20:50:00 Test Item Value Reference Range Comments PARTIAL THROMBOPLASTIN TIME (BEAKER) (test 24.9 seconds 22.5-36.0 vhgo=465) PROTHROMBIN [id number] 20:49:00 Test Item Value Reference Range Comments PROTIME (BEAKER) (test dncw=303) 13.8 seconds 11.7-14.7 INR (BEAKER) (test jchj=468) 1.1 <=5.9 RECOMMENDED COUMADIN/WARFARIN INR THERAPY RANGESSTANDARD DOSE: 2.0 - 3.0 Includes: PROPHYLAXIS forvenous thrombosis, systemic embolization; TREATMENT for venous thrombosis and/or pulmonary embolus.HIGH RISK: Target INR is 2.5-3.5 for patients with mechanical heart valves.[id number] 19:32:00 Test Item Value Reference Range Comments MAGNESIUM (BEAKER) (test ykjh=093) 2.2 mg/dL 1.6-2.6 [id number] 05:51:00 Test Item Value Reference Range Comments MAGNESIUM (BEAKER) (test zsex=394) 2.2 mg/dL 1.6-2.6 BASIC METABOLIC [id number] 05:51:00 Test Item Value Reference Range Comments SODIUM (BEAKER) (test 138 meq/L 136-145 kqah=141) POTASSIUM (BEAKER) (test 4.5 meq/L 3.5-5.1 yfta=297) CHLORIDE (BEAKER) (test 109 meq/L 98-107 xean=538) CO2 (BEAKER) (test 22 meq/L 22-29 qxmv=694) BLOOD UREA NITROGEN 13 mg/dL 7-21 (BEAKER) (test kvmk=352) CREATININE (BEAKER) (test 0.82 mg/dL 0.57-1.25 vdup=795) GLUCOSE RANDOM (BEAKER) 88 mg/dL 70-105 (test tkgs=043) CALCIUM (BEAKER) (test 8.2 mg/dL 8.4-10.2 wyvx=977) EGFR (BEAKER) (test 95 mL/min/1.73 sq m ESTIMATED GFR IS NOT ikdr=2806) ACCURATE CREATININE CLEARANCE IN PREDICTING GLOMERULAR FILTRATION RATE. ESTIMATED GFR IS NOT APPLICABLE FOR DIALYSIS PATIENTS. CBC W/PLT COUNT & AUTO [id number] 05:34:00 Test Item Value Reference Range Comments WHITE BLOOD CELL COUNT (BEAKER) (test gvpk=145) 13.3 K/ L 4.0-10.0 RED BLOOD CELL COUNT (BEAKER) (test omlu=598) 3.56 M/ L 4.20-5.80 HEMOGLOBIN (BEAKER) (test yvev=202) 10.7 GM/DL 13.0-16.8 HEMATOCRIT (BEAKER) (test jbll=525) 33.3 % 40.0-50.0 MEAN CORPUSCULAR VOLUME (BEAKER) (test jkuk=393) 93.5 fL 82.0-98.0 MEAN CORPUSCULAR HEMOGLOBIN (BEAKER) (test 30.1 pg 27.0-33.0 jtxk=948) MEAN CORPUSCULAR HEMOGLOBIN CONC (BEAKER) (test 32.2 GM/DL 32.0-36.0 dtjn=756) RED CELL DISTRIBUTION WIDTH (BEAKER) (test 11.8 % 10.3-14.2 hroo=064) PLATELET COUNT (BEAKER) (test nkoe=771) 154 K/CU MM 150-430 MEAN PLATELET VOLUME (BEAKER) (test qkly=231) 8.6 fL 6.5-10.5 NUCLEATED RED BLOOD CELLS (BEAKER) (test 0 /100 WBC 0-0 cnuv=298) NEUTROPHILS RELATIVE PERCENT (BEAKER) (test 80 % tkkg=979) LYMPHOCYTES RELATIVE PERCENT (BEAKER) (test 9 % jkjw=078) MONOCYTES RELATIVE PERCENT (BEAKER) (test 10 % ytgg=213) EOSINOPHILS RELATIVE PERCENT (BEAKER) (test 0 % ndfv=951) BASOPHILS RELATIVE PERCENT (BEAKER) (test 1 % aykp=159) NEUTROPHILS ABSOLUTE COUNT (BEAKER) (test 10.60 K/ L 1.80-8.00 paem=622) LYMPHOCYTES ABSOLUTE COUNT (BEAKER) (test 1.24 K/ L 1.48-4.50 azow=229) MONOCYTES ABSOLUTE COUNT (BEAKER) (test 1.34 K/ L 0.00-1.30 fdcz=184) EOSINOPHILS ABSOLUTE COUNT (BEAKER) (test 0.03 K/ L 0.00-0.50 bunx=608) BASOPHILS ABSOLUTE COUNT (BEAKER) (test 0.10 K/ L 0.00-0.20 ybcw=597) [id number] 04:22:00 Test Item Value Reference Range Comments PARTIAL THROMBOPLASTIN TIME (BEAKER) (test 27.0 seconds 22.5-36.0 jdsv=395) PROTHROMBIN [id number] 04:21:00 Test Item Value Reference Range Comments PROTIME (BEAKER) (test oewq=376) 14.4 seconds 11.7-14.7 INR (BEAKER) (test tqtq=364) 1.1 <=5.9 RECOMMENDED COUMADIN/WARFARIN INR THERAPY RANGESSTANDARD DOSE: 2.0 - 3.0 Includes: PROPHYLAXIS forvenous thrombosis, systemic embolization; TREATMENT for venous thrombosis and/or pulmonary embolus.HIGH RISK: Target INR is 2.5-3.5 for patients with mechanical heart valves.[id number] 04:09:00 Test Item Value Reference Range Comments MAGNESIUM (BEAKER) (test 1.9 mg/dL 1.6-2.6 Specimen slightly hemolyzed bood=103) BASIC METABOLIC [id number] 04:09:00 Test Item Value Reference Range Comments SODIUM (BEAKER) (test 137 meq/L 136-145 sywd=736) POTASSIUM (BEAKER) (test 4.4 meq/L 3.5-5.1 Specimen slightly seqy=432) hemolyzed CHLORIDE (BEAKER) (test 105 meq/L 98-107 etnb=824) CO2 (BEAKER) (test 25 meq/L 22-29 kihs=552) BLOOD UREA NITROGEN 16 mg/dL 7-21 (BEAKER) (test ltyn=456) CREATININE (BEAKER) (test 1.03 mg/dL 0.57-1.25 Specimen slightly lils=069) hemolyzed GLUCOSE RANDOM (BEAKER) 221 mg/dL 70-105 (test mqlf=612) CALCIUM (BEAKER) (test 8.2 mg/dL 8.4-10.2 rdrj=069) EGFR (BEAKER) (test 73 mL/min/1.73 sq m ESTIMATED GFR IS NOT pbtd=3220) ACCURATE CREATININE CLEARANCE IN PREDICTING GLOMERULAR FILTRATION RATE. ESTIMATED GFR IS NOT APPLICABLE FOR DIALYSIS PATIENTS. BLOOD GAS, [id number] 04:06:00 Test Item Value Reference Range Comments PH ARTERIAL (BEAKER) (test srgx=738) 7.40 7.35-7.45 PCO2 ARTERIAL (BEAKER) (test lfel=712) 44 mmHg 35-45 PO2 ARTERIAL (BEAKER) (test zssy=982) 283 mmHg 80-90 O2 SATURATION ARTERIAL (BEAKER) (test hslp=405) 99.7 % 96.0-97.0 HCO3 ARTERIAL (BEAKER) (test wskp=563) 27 mmol/L 21-29 BASE EXCESS ARTERIAL (BEAKER) (test swpe=111) 1.4 mmol/L -2.0-3.0 PATIENT TEMPERATURE (BEAKER) (test kjcl=7455) 36.6 C FIO2 (BEAKER) (test pwgf=1996) 40.0 % If A-Line onlyCBC W/PLT COUNT & AUTO [id number] 04:05:00 Test Item Value Reference Range Comments WHITE BLOOD CELL COUNT (BEAKER) (test yzzr=934) 7.8 K/ L 4.0-10.0 RED BLOOD CELL COUNT (BEAKER) (test qblf=748) 3.52 M/ L 4.20-5.80 HEMOGLOBIN (BEAKER) (test zarw=838) 10.5 GM/DL 13.0-16.8 HEMATOCRIT (BEAKER) (test sddy=898) 31.7 % 40.0-50.0 MEAN CORPUSCULAR VOLUME (BEAKER) (test vwcu=374) 90.2 fL 82.0-98.0 MEAN CORPUSCULAR HEMOGLOBIN (BEAKER) (test 29.9 pg 27.0-33.0 rgkd=987) MEAN CORPUSCULAR HEMOGLOBIN CONC (BEAKER) (test 33.1 GM/DL 32.0-36.0 kglf=017) RED CELL DISTRIBUTION WIDTH (BEAKER) (test 12.4 % 10.3-14.2 udmv=409) PLATELET COUNT (BEAKER) (test lzou=862) 142 K/CU MM 150-430 MEAN PLATELET VOLUME (BEAKER) (test huzp=588) 7.9 fL 6.5-10.5 NUCLEATED RED BLOOD CELLS (BEAKER) (test 0 /100 WBC 0-0 dsdm=840) NEUTROPHILS RELATIVE PERCENT (BEAKER) (test 88 % fnnv=784) LYMPHOCYTES RELATIVE PERCENT (BEAKER) (test 5 % rchd=027) MONOCYTES RELATIVE PERCENT (BEAKER) (test 7 % daiw=481) EOSINOPHILS RELATIVE PERCENT (BEAKER) (test 0 % ecgk=522) BASOPHILS RELATIVE PERCENT (BEAKER) (test 0 % jrfa=508) NEUTROPHILS ABSOLUTE COUNT (BEAKER) (test 6.87 K/ L 1.80-8.00 ygcg=051) LYMPHOCYTES ABSOLUTE COUNT (BEAKER) (test 0.38 K/ L 1.48-4.50 yxhv=623) MONOCYTES ABSOLUTE COUNT (BEAKER) (test 0.52 K/ L 0.00-1.30 nsbd=081) EOSINOPHILS ABSOLUTE COUNT (BEAKER) (test 0.03 K/ L 0.00-0.50 kqui=058) BASOPHILS ABSOLUTE COUNT (BEAKER) (test 0.00 K/ L 0.00-0.20 dtge=441) [id number] 23:42:00 Test Item Value Reference Range Comments POTASSIUM (BEAKER) (test euxc=424) 5.4 meq/L 3.5-5.1 BASIC METABOLIC [id number] 22:41:00 Test Item Value Reference Range Comments SODIUM (BEAKER) (test 136 meq/L 136-145 xppd=713) POTASSIUM (BEAKER) (test 5.7 meq/L 3.5-5.1 jjxq=613) CHLORIDE (BEAKER) (test 108 meq/L 98-107 nemv=453) CO2 (BEAKER) (test 20 meq/L 22-29 pixq=057) BLOOD UREA NITROGEN 16 mg/dL 7-21 (BEAKER) (test iqxq=081) CREATININE (BEAKER) (test 1.07 mg/dL 0.57-1.25 rhzo=208) GLUCOSE RANDOM (BEAKER) 158 mg/dL 70-105 (test bufu=059) CALCIUM (BEAKER) (test 7.7 mg/dL 8.4-10.2 iarm=135) EGFR (BEAKER) (test 70 mL/min/1.73 sq m ESTIMATED GFR IS NOT rtjo=7248) ACCURATE CREATININE CLEARANCE IN PREDICTING GLOMERULAR FILTRATION RATE. ESTIMATED GFR IS NOT APPLICABLE FOR DIALYSIS PATIENTS. [id number] 22:40:00 Test Item Value Reference Range Comments MAGNESIUM (BEAKER) (test ewox=169) 1.7 mg/dL 1.6-2.6 [id number] 22:33:00 Test Item Value Reference Range Comments PARTIAL THROMBOPLASTIN TIME (BEAKER) (test 26.2 seconds 22.5-36.0 zyvp=723) PROTHROMBIN TIME/[id number] 22:32:00 Test Item Value Reference Range Comments PROTIME (BEAKER) (test mjhv=580) 14.4 seconds 11.7-14.7 INR (BEAKER) (test aakr=394) 1.1 <=5.9 RECOMMENDED COUMADIN/WARFARIN INR THERAPY RANGESSTANDARD DOSE: 2.0 - 3.0 Includes: PROPHYLAXIS forvenous thrombosis, systemic embolization; TREATMENT for venous thrombosis and/or pulmonary embolus.HIGH RISK: Target INR is 2.5-3.5 for patients with mechanical heart valves.CALCIUM, [id number] 22:26:00 Test Item Value Reference Range Comments CALCIUM IONIZED (BEAKER) (test bqxb=521) 1.01 mmol/L 1.12-1.27 PH, BLOOD (BEAKER) (test fjdv=8935) 7.32 BLOOD GAS, [id number] 22:26:00 Test Item Value Reference Range Comments PH ARTERIAL (BEAKER) (test ouba=456) 7.32 7.35-7.45 PCO2 ARTERIAL (BEAKER) (test nira=141) 41 mmHg 35-45 PO2 ARTERIAL (BEAKER) (test gzsk=766) 310 mmHg 80-90 O2 SATURATION ARTERIAL (BEAKER) (test rruy=757) 99.7 % 96.0-97.0 HCO3 ARTERIAL (BEAKER) (test itsk=123) 21 mmol/L 21-29 BASE EXCESS ARTERIAL (BEAKER) (test xhiu=939) -5.2 mmol/L -2.0-3.0 PATIENT TEMPERATURE (BEAKER) (test rnwn=2853) 36.9 C FIO2 (BEAKER) (test auta=4865) 40.0 % CBC (HEMOGRAM ONLY)[id number] 22:20:00 Test Item Value Reference Range Comments WHITE BLOOD CELL COUNT (BEAKER) (test such=497) 15.6 K/ L 4.0-10.0 RED BLOOD CELL COUNT (BEAKER) (test mpsq=083) 4.26 M/ L 4.20-5.80 HEMOGLOBIN (BEAKER) (test wsil=983) 12.9 GM/DL 13.0-16.8 HEMATOCRIT (BEAKER) (test hnsr=687) 39.7 % 40.0-50.0 MEAN CORPUSCULAR VOLUME (BEAKER) (test lxiz=829) 93.2 fL 82.0-98.0 MEAN CORPUSCULAR HEMOGLOBIN (BEAKER) (test 30.2 pg 27.0-33.0 meyc=937) MEAN CORPUSCULAR HEMOGLOBIN CONC (BEAKER) (test 32.4 GM/DL 32.0-36.0 bluf=860) RED CELL DISTRIBUTION WIDTH (BEAKER) (test 11.9 % 10.3-14.2 whdm=196) PLATELET COUNT (BEAKER) (test dcpt=625) 182 K/CU MM 150-430 MEAN PLATELET VOLUME (BEAKER) (test vzrv=212) 7.8 fL 6.5-10.5 NUCLEATED RED BLOOD CELLS (BEAKER) (test 0 /100 WBC 0-0 khmj=383) 0.00
[2019-07-09 19:28] LABS: Absolute Lymphocytes (CBC) 0.7 K/uL (0.7-4.9); Basophils % 0.4 % (0-1.3); Hematocrit 42.2 % (39.6-49.0); Lymphocytes % 8.7 % (15.3-44.8); MPV 7.9 fL (7.6-11.3); RBC Red Blood Cell Count 4.64 M/uL (4.33-5.43)
[2019-07-09 19:33] LABS: Protime INR 0.98
--- NOTE | 2019-07-09 19:39 | RAD REPORT ---
EXAM DESCRIPTION: [place] Single View07/09/2019 7:32 pm CLINICAL HISTORY: sob COMPARISON: January 2019 FINDINGS: The lungs are markedly hyperaerated The lungs appear clear of acute infiltrate. The heart is normal size IMPRESSION: COPD without visualization acute abnormality
[2019-07-09 19:48] LABS: ALT/SGPT 19 U/L (12-78); AST/SGOT 20 U/L (15-37); Alkaline Phosphatase 80 U/L (45-117); BUN Blood Urea Nitrogen 22 mg/dL (7-18); Bicarbonate 34 mmol/L (21-32); Bilirubin Direct 0.1 mg/dL (0-0.2); Bilirubin Total 0.4 mg/dL (0.2-1.0); CKMB Creatine Kinase MB 2.1 ng/mL (0.3-3.6); Creatine Phosphokinase 248 U/L (39-308); Glucose Level 125 mg/dL (74-106); Lipase 142 U/L (73-393); Potassium 4.1 mmol/L (3.5-5.1); Protein, Total 7.7 g/dL (6.4-8.2); Sodium Level 141 mmol/L (136-145); Troponin (Emerg Dept Use Only) < 0.02 ng/mL (0.0-0.045)
--- NOTE | 2019-07-09 20:26 | RAD REPORT ---
EXAM DESCRIPTION: CT - Chest For Pe Angio - 07/09/2019 8:16 pm CLINICAL HISTORY: sob COMPARISON: 2017 TECHNIQUE: Dynamically enhanced axial 3 mm thick images of the chest were obtained during administra tion of <100> mL Isovue 370 IV contrast. Coronal and oblique reconstruction images were generated and reviewed. Exam utilizes a protocol for optimal evaluation of pulmonary arterial tree. Maximum intensity projections 3D imaging was utilized All CT scans are performed using dose optimization technique as appropriate and may include automated exposure control or mA/KV adjustment according to patient size. FINDINGS: The evaluation of the subsegmental pulmonary arteries is somewhat limited secondary to res piratory artifact A pulmonary embolus is not seen. A thoracic aortic aneurysm is not noted. A pleural effusion is not seen. A pericardial effusion is not seen. A lung consolidation is not present. Centrilobular and paraseptal emphysema IMPRESSION: A pulmonary embolism is not visualized copd
[2019-07-09] MEDS ORDERED: ALBUTEROL 2.5 MG/3 ML NEB SOL ONE (20:51)
[2019-07-09] MEDS ORDERED: IPRATROPIUM BROM 0.5MG/2.5ML ONE (20:54)
--- NOTE | 2019-07-09 22:46 | EDPHYS ---
Physician Documentation [facility] Name: Bang Ferguson Age: 69 yrs Sex: Male : 1950 Arrival Date: 07/09/2019 Time: 18:55 Bed 18 Private MD: ED Physician Kendrick Appiah HPI: 07/09 23:00 This 69 yrs old Male presents to ER via Wheelchair with complaints of tw4 Breathing Difficulty, Leg Swelling. 23:00 The patient has shortness of breath at rest. Onset: The symptoms/episode began/occurred tw4 2 week(s) ago. Duration: The symptoms are continuous, and are unchanged since they started, and are steadily getting worse. The patient's shortness of breath has no apparent modifying factors. Associated signs and symptoms: Pertinent positives: productive cough, Pertinent negatives: chest pain, fever, hemoptysis, loss of consciousness, nausea, numbness in extremities, visual changes, vomiting. Severity of symptoms: At their worst the symptoms were mild in the emergency department the symptoms are unchanged. The patient has not experienced similar symptoms in the past. Historical: - Allergies: 18:59 No Known Allergies; tw2 - Home Meds: 18:59 Oxygen 2.5 L/NC prn [Active]; tw2 21:44 prednisone 10 mg Oral tab 1 tab once daily [Active]; pantoprazole 40 mg oral TbEC 1 tab lp1 once daily [Active]; aspirin 81 mg Oral TbEC 1 tab once daily [Active]; atorvastatin 40 mg oral tab 0.5 tab once daily [Active]; Vitamin D3 400 unit oral cap 2 cap daily [Active]; tamsulosin 0.4 mg oral cp24 2 caps once daily [Active]; - PMHx: 18:59 COPD; tw2 21:44 GERD; Hyperlipidemia; lp1 - PSHx: 18:59 Hernia repair; tw2 - Immunization history:: Adult Immunizations. - Social history:: Smoking status: . - Ebola Screening: : Patient denies travel to an Ebola-affected area in the 21 days before illness onset. ROS: 23:00 Eyes: Negative for injury, pain, redness, and discharge, ENT: Negative for injury, tw4 pain, and discharge, Cardiovascular: Negative for chest pain, palpitations, and edema, Abdomen/GI: Negative for abdominal pain, nausea, vomiting, diarrhea, and constipation, Back: Negative for injury and pain, MS/Extremity: Negative for injury and deformity, Skin: Negative for injury, rash, and discoloration, Neuro: Negative for headache, weakness, numbness, tingling, and seizure. 23:00 Respiratory: Positive for cough, shortness of breath, Negative for dyspnea on exertion, hemoptysis, orthopnea, pleurisy, sputum production, wheezing. Exam: 23:00 Constitutional: This is a well developed, well nourished patient who is awake, alert, tw4 and in no acute distress. Head/Face: Normocephalic, atraumatic. Eyes: Pupils equal round and reactive to light, extra-ocular motions intact. Lids and lashes normal. Conjunctiva and sclera are non-icteric and not injected. Cornea within normal limits. Periorbital areas with no swelling, redness, or edema. Chest/axilla: Normal chest wall appearance and motion. Nontender with no deformity. No lesions are appreciated. Cardiovascular: Regular rate and rhythm with a normal S1 and S2. No gallops, murmurs, or rubs. Normal PMI, no JVD. No pulse deficits. Abdomen/GI: Soft, non-tender, with normal bowel sounds. No distension or tympany. No guarding or rebound. No evidence of tenderness throughout. Back: No spinal tenderness. No costovertebral tenderness. Full range of motion. Skin: Warm, dry with normal turgor. Normal color with no rashes, no lesions, and no evidence of cellulitis. MS/ Extremity: Pulses equal, no cyanosis. Neurovascular intact. Full, normal range of motion. Neuro: Awake and alert, GCS 15, oriented to person, place, time, and situation. Cranial nerves II-XII grossly intact. Motor strength 5/5 in all extremities. Sensory grossly intact. Cerebellar exam normal. Normal gait. 23:00 Respiratory: the patient does not display signs of respiratory distress, Respirations: no acute changes, Breath sounds: wheezing: expiratory that is mild. Vital Signs: 18:59 BP 165 / 80; Pulse 93; Resp 24; Temp 97.8(TE); Pulse Ox 92% on 3 lpm NC; Weight 98.88 tw2 kg (R); Height 5 ft. 9 in. (175.26 cm) (R); Pain 5/10; 19:10 BP 169 / 72; Pulse 94; Resp 24; Pulse Ox 97% on 4 lpm NC; lp1 20:00 BP 124 / 58; Pulse 75; Resp 22; Pulse Ox 97% on 4 lpm NC; lp1 21:00 BP 119 / 50; Pulse 74; Resp 16; Pulse Ox 99% on Nebulizer Mask; lp1 21:45 BP 129 / 57; Pulse 83; Resp 19; Pulse Ox 96% on 3 lpm NC; lp1 22:30 BP 121 / 48; Pulse 82; Resp 22; Pulse Ox 94% on 3 lpm NC; lp1 23:30 BP 132 / 52; Pulse 81; Resp 20; Pulse Ox 97% on 3 lpm NC; lp1 07/10 00:25 BP 131 / 58; Pulse 80; Resp 22; Temp 98.7(O); Pulse Ox 96% on 3 lpm NC; lp1 00:45 BP 130 / 63; Pulse 80; Resp 21; Pulse Ox 96% on 3 lpm NC; lp1 07/09 18:59 Body Mass Index 32.19 (98.88 kg, 175.26 cm) tw2 MDM: 07/09 20:34 Patient medically screened. tw4 23:03 Differential diagnosis: CHF exacerbation, Chronic Obstructive Pulmonary Disease tw4 Myocardial Infarction pneumonia, pulmonary edema, Pulmonary Embolism reactive airway disease. Antibiotic administration: Not indicated. Data reviewed: vital signs, nurses notes. 07/09 19:13 Order name: Basic Metabolic Panel; Complete Time: 19:57 1 07/09 19:57 Interpretation: Normal except: CO2 34; BUN 22; GFR 68; GLUC 125. tw4 07/09 19:13 Order name: Blood Culture Adult (2) 1 07/09 19:13 Order name: CBC with Diff; Complete Time: 19:57 1 07/09 19:58 Interpretation: Normal except: CARMELA% 81.0; LYM% 8.7. tw4 07/09 19:13 Order name: Ckmb; Complete Time: 19:57 lp1 07/09 19:58 Interpretation: Within normal limits: CKMB 2.1. tw4 07/09 19:13 Order name: CPK; Complete Time: 19:57 1 07/09 19:58 Interpretation: Within normal limits: CPK 248. tw4 07/09 19:13 Order name: Lactate; Complete Time: 19:57 lp1 07/09 19:58 Interpretation: Within normal limits: LAC 1.7. tw4 07/09 19:13 Order name: LFT's; Complete Time: 19:57 lp1 07/09 19:58 Interpretation: Normal except: ALB 3.0; GLOB 4.7; A/G 0.6. tw4 07/09 19:13 Order name: Lipase; Complete Time: 19:57 lp1 07/09 19:58 Interpretation: Within normal limits: LIP 142. tw4 07/09 19:13 Order name: Procalcitonin; Complete Time: 22:39 lp1 07/09 19:13 Order name: Protime (+inr); Complete Time: 19:57 lp1 07/09 19:58 Interpretation: Within normal limits: PT 11.6. tw4 07/09 19:13 Order name: Ptt, Activated; Complete Time: 19:57 1 07/09 19:13 Order name: Troponin (emerg Dept Use Only); Complete Time: 19:57 lp1 07/09 19:13 Order name: Urine Microscopic [facility] 07/09 19:20 Order name: BNP; Complete Time: 19:57 4 07/09 19:13 Order name: Chest Single View XRAY; Complete Time: 19:57 lp1 07/09 19:13 Order name: Accucheck; Complete Time: 19:45 1 07/09 19:13 Order name: Cardiac monitoring; Complete Time: 19:13 1 07/09 19:13 Order name: EKG - Nurse/Tech; Complete Time: 19:15 1 07/09 19:13 Order name: IV Saline Lock - Large Bore; Complete Time: 19:13 1 07/09 19:13 Order name: Labs collected and sent; Complete Time: 19:13 1 07/09 19:13 Order name: O2 Per Protocol; Complete Time: 19:13 1 07/09 19:13 Order name: O2 Sat Monitoring; Complete Time: 19:13 1 07/09 19:20 Order name: D-Dimer; Complete Time: 19:57 tw4 07/09 19:58 Interpretation: Normal except: D-DIMER 1444. tw4 07/09 19:45 Order name: Glucose, Ancillary Testing; Complete Time: 19:57 EDMS 07/09 19:57 Order name: CT Chest For PE Angio; Complete Time: 20:46 tw4 07/09 22:55 Order name: ABG lp1 07/09 23:56 Order name: Social Service Consult EDAZ EC:03 Rate is 87 beats/min. Rhythm is regular. QRS Mckittrick is Normal. GA interval is normal. QRS tw4 interval is normal. No Q waves. T waves are Normal. No ST changes noted. Clinical impression: NSR w/ Non-specific ST/T Changes. Interpreted by me. Reviewed by me. Administered Medications: 21:00 Drug: DuoNeb (3:1) (2.5 mg - 0.5 mg) 3 ml Route: Nebulizer; lp1 21:55 Follow up: Response: No adverse reaction lp1 Disposition: 07/09/19 22:45 Hospitalization ordered by Luna Mcdaniel for Inpatient Admission. Preliminary diagnosis is Chronic obstructive pulmonary disease with (acute) exacerbation. - Bed requested for Telemetry/MedSurg (Inpatient). - Status is Inpatient Admission. lp1 - Condition is Stable. - Problem is new. - Symptoms have improved. UTI on Admission? No Signatures: Dispatcher [employer] EDAZ Fidelia Reilly RN RN lp1 Marisela Pruitt RN RN cg Arianna Garza RN RN tw2 Kendrick Appiah MD MD tw4 Corrections: (The following items were deleted from the chart) 07/10 00:21 07/09 22:45 Hospitalization Ordered by Luna Mcdaniel MD for Inpatient Admission. cg Preliminary diagnosis is Chronic obstructive pulmonary disease with (acute) exacerbation. Bed requested for Telemetry/MedSurg (Inpatient). Status is Inpatient Admission. Condition is Stable. Problem is new. Symptoms have improved. UTI on Admission? No. tw4 07/10 00:58 00:21 07/09/2019 22:45 Hospitalization Ordered by Luna Mcdaniel MD for Inpatient lp1 Admission. Preliminary diagnosis is Chronic obstructive pulmonary disease with (acute) exacerbation. Bed requested for Telemetry/MedSurg (Inpatient). Status is Inpatient Admission. Condition is Stable. Problem is new. Symptoms have improved. UTI on Admission? No. cg
--- NOTE | 2019-07-09 22:46 | ER ---
Nurse's Notes [facility] Name: Bang Ferguson Age: 69 yrs Sex: Male : 1950 Arrival Date: 07/09/2019 Time: 18:55 Bed 18 Private MD: Diagnosis: Chronic obstructive pulmonary disease with (acute) exacerbation Presentation: 07/09 18:57 Presenting complaint: Patient states: i have been swelling for a couple of days, now i tw2 am short of breath, i used 3L oxygen at home and i am having sharp pain on my right side. Transition of care: patient was not received from another setting of care. Onset of symptoms was July 09, 2019. Risk Assessment: Do you want to hurt yourself or someone else? Patient reports no desire to harm self or others. Initial Sepsis Screen: Does the patient meet any 2 criteria? RR > 20 per min. HR > 90 bpm. Yes Does the patient have a suspected source of infection? Yes: Productive cough/pneumonia. Care prior to arrival: None. 18:57 Method Of Arrival: Wheelchair tw2 18:57 Acuity: IVANIA 2 tw2 Triage Assessment: 18:58 General: Appears uncomfortable, Behavior is appropriate for age. Pain: Complains of tw2 pain in abdomen. Respiratory: Reports shortness of breath at rest on exertion cough that is Onset: The symptoms/episode began/occurred couple of days now, the patient has severe shortness of breath. Historical: - Allergies: 18:59 No Known Allergies; tw2 - Home Meds: 18:59 Oxygen 2.5 L/NC prn [Active]; tw2 21:44 prednisone 10 mg Oral tab 1 tab once daily [Active]; pantoprazole 40 mg oral TbEC 1 tab lp1 once daily [Active]; aspirin 81 mg Oral TbEC 1 tab once daily [Active]; atorvastatin 40 mg oral tab 0.5 tab once daily [Active]; Vitamin D3 400 unit oral cap 2 cap daily [Active]; tamsulosin 0.4 mg oral cp24 2 caps once daily [Active]; - PMHx: 18:59 COPD; tw2 21:44 GERD; Hyperlipidemia; lp1 - PSHx: 18:59 Hernia repair; tw2 - Immunization history:: Adult Immunizations. - Social history:: Smoking status: . - Ebola Screening: : Patient denies travel to an Ebola-affected area in the 21 days before illness onset. Screenin:01 Abuse screen: Denies threats or abuse. Denies injuries from another. Nutritional lp1 screening: No deficits noted. Tuberculosis screening: No symptoms or risk factors identified. Fall Risk Total Escal[place] Fall Scale indicates High Risk Score (45 or more points). Fall prevention measures have been instituted. Side Rails Up X 2 Family Present and informed to notify staff if the need to leave the bedside As available patient and family educated on Fall Prevention Program and Strategies. Assessment: 19:10 General: Appears uncomfortable, Behavior is appropriate for age. Pain: Complains of lp1 pain in chest Pain currently is 6 out of 10 on a pain scale. Neuro: Level of Consciousness is awake, alert, obeys commands, Oriented to person, place, time, situation. Cardiovascular: Patient's skin is warm and dry. Edema pitting to left ankle, left foot, right ankle and right foot Rhythm is sinus rhythm. Respiratory: Reports shortness of breath at rest cough that is labored breathing Airway is patent Trachea midline Respiratory effort is labored, Respiratory pattern is tachypnea Breath sounds with wheezes bilaterally. Onset: The symptoms/episode began/occurred gradually, the patient has moderate shortness of breath. GI: Abdomen is non-distended. : No signs and/or symptoms were reported regarding the genitourinary system. EENT: No signs and/or symptoms were reported regarding the EENT system. Derm: Skin is intact, Skin is dry, Skin is normal. Musculoskeletal: No deficits noted. 20:15 Reassessment: Patient appears in no apparent distress at this time. Patient appears lp1 calm at this time, sitting up at 90 degrees. 21:15 Reassessment: Patient appears in no apparent distress at this time. No changes from lp1 previously documented assessment. Nebulizer in place. 22:30 Reassessment: Patient appears in no apparent distress at this time. Patient and/or lp1 family updated on plan of care and expected duration. Pain level reassessed. Patient states feeling better. Respiratory: Respiratory effort is even, Respiratory pattern is regular, Breath sounds are coarse bilaterally. 23:17 Reassessment: Hospitalist at bedside. 1 07/10 00:25 Reassessment: Patient appears in no apparent distress at this time. Neuro: Level of lp1 Consciousness is awake, alert, obeys commands. Respiratory: Respiratory effort is even, Breath sounds are coarse bilaterally. Derm: Skin is intact, Skin is dry, Skin is normal, dusky. Vital Signs: 07/09 18:59 BP 165 / 80; Pulse 93; Resp 24; Temp 97.8(TE); Pulse Ox 92% on 3 lpm NC; Weight 98.88 tw2 kg (R); Height 5 ft. 9 in. (175.26 cm) (R); Pain 5/10; 19:10 BP 169 / 72; Pulse 94; Resp 24; Pulse Ox 97% on 4 lpm NC; lp1 20:00 BP 124 / 58; Pulse 75; Resp 22; Pulse Ox 97% on 4 lpm NC; lp1 21:00 BP 119 / 50; Pulse 74; Resp 16; Pulse Ox 99% on Nebulizer Mask; lp1 21:45 BP 129 / 57; Pulse 83; Resp 19; Pulse Ox 96% on 3 lpm NC; lp1 22:30 BP 121 / 48; Pulse 82; Resp 22; Pulse Ox 94% on 3 lpm NC; lp1 23:30 BP 132 / 52; Pulse 81; Resp 20; Pulse Ox 97% on 3 lpm NC; lp1 07/10 00:25 BP 131 / 58; Pulse 80; Resp 22; Temp 98.7(O); Pulse Ox 96% on 3 lpm NC; lp1 00:45 BP 130 / 63; Pulse 80; Resp 21; Pulse Ox 96% on 3 lpm NC; lp1 07/09 18:59 Body Mass Index 32.19 (98.88 kg, 175.26 cm) tw2 ED Course: 07/09 18:55 Patient arrived in ED. mr 18:58 Triage completed. tw2 18:59 Arm band placed on. tw2 19:10 Patient has correct armband on for positive identification. Placed in gown. Bed in low lp1 position. Call light in reach. research attorney on. Pulse ox on. NIBP on. 19:11 Fidelia Reilly, RN is Primary Nurse. lp1 19:11 Inserted saline lock: 20 gauge in right antecubital area, using aseptic technique. lp1 Blood collected. 19:11 Initial lab(s) drawn, by ak, sent to lab. First set of blood cultures drawn by me. lp1 19:13 Kendrick Appiah MD is Attending Physician. tw4 19:33 Chest Single View XRAY In Process Unspecified. EDMS 20:16 CT Chest For PE Angio In Process Unspecified. EDMS 20:23 CT completed. Patient tolerated procedure well. Patient moved back from radiology. md1 22:45 Luna Mcdaniel MD is Hospitalizing Provider. tw4 23:18 No provider procedures requiring assistance completed. Patient admitted, IV remains in lp1 place. Administered Medications: 21:00 Drug: DuoNeb (3:1) (2.5 mg - 0.5 mg) 3 ml Route: Nebulizer; lp1 21:55 Follow up: Response: No adverse reaction lp1 Outcome: 22:45 Decision to Hospitalize by Provider. tw4 12 00:24 Condition: stable lp1 Instructed on the need for admit. 00:40 Admitted to Tele accompanied by tech, via stretcher, room 412, with oxygen, with chart, lp1 Report called to MEG Ba 00:58 Patient left the ED. lp1 Signatures: Dispatcher [employer] Gris Christianson mr AngelesFidelia wong, RN RN lp1 Arianna Garza RN RN tw2 Kendrick Appiah MD MD tw4 Kylah Cunha md1 Corrections: (The following items were deleted from the chart) 07/09 21:45 19:10 Cardiovascular: Patient's skin is warm and dry. Edema pitting to left ankle, left lp1 foot, right ankle and right foot lp1
[2019-07-09 23:48] LABS: Arterial Blood Carboxyhemoglob 0.8 % (0-1.5); Blood O2 Saturation 95.5 % (92-98.5)
--- NOTE | 2019-07-09 23:55 | P.HP ---
Certification for Inpatient With expected LOS: >2 Midnights Patient will require the following post-hospital care: Home Health Services Practitioner: I am a practitioner with admitting privileges, knowledge of patient current condition, hospital course, and medical plan of care. 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 he states having nasal congestion concerning for a cold 1 week ago. he also noted LE swelling and states an increase in 30lbs over the last month. he states that he has never had swelling similar in the past. he reports orthopnea, worsening BIRD, and SOB. he reports needing a recliner to sleep. he denies fever, chills, N/V/. per pt he saw dr jeong and given samples of a new inhaler that improved his lung function but upon returning to the [place] for his follow up they refused to refill the samples that he received previously from the [facility]. he has returned to live w/ his sister x 1 month due to inability to take care of himself and complete his ADLs alone. he reports progressive worsening of BIRD and ambulation due to SOB. he reports 2 cigs/daily, hx of 50yr tobacco use denies etoh and drugs Allergies No Known Allergies Allergy (Unverified 11/17/16 09:20) Home Medications: Cholecalciferol (Vitamin D3) [Vitamin D 400 IU TAB*] 400 unit PO DAILY 11/17/16 Aspirin [Aspirin EC 81 MG] 81 mg PO DAILY 07/10/19 Atorvastatin Calcium [Lipitor] 20 mg PO DAILY 07/10/19 Pantoprazole [Protonix Tab*] 40 mg PO DAILY 07/10/19 Tamsulosin [Flomax*] 0.8 mg PO DAILY 07/10/19 predniSONE [Prednisone*] 10 mg PO DAILY 07/10/19 - Past Medical/Surgical History -: COPD -: hernia repair - Social History Alcohol use: No CD- Drugs: No Caffeine use: Yes Review of Systems General: Weakness Eyes: Unremarkable ENT: Unremarkable Respiratory: Cough, Shortness of Breath, SOB with Excertion, Sputum, Wheezing Cardiovascular: Orthopnea Gastrointestinal: Unremarkable Genitourinary: Unremarkable Musculoskeletal: Pedal edema, As per HPI Integumentary: Unremarkable Neurological: Unremarkable Physical Examination - Physical Exam General: Alert, Oriented x3, Cooperative, Mild distress, Obese, Other (dyspneic at rest on 3.5L NC. short 5 word sentences, interactive. appears weak, frail and ungroomed) HEENT: Other (multiple areas of hyperkeratosis ), EOMI Neck: Supple, Other (large neck) Respiratory: Diminished, Inspiratory wheezes, Other (decreased breath sounds/ aeration ) Cardiovascular: Normal pulses, Regular rate/rhythm, No murmurs, Edema (1+ PD edema) Capillary refill: <2 Seconds Gastrointestinal: Soft and benign, Non-distended, No rebound, No guarding Musculoskeletal: No tenderness, Swelling Integumentary: Skin lesion Neurological: Cranial nerves 3-12 intact, Other (gait not tested ) External genitalia: Deferred Rectal: Deferred - Studies Laboratory Data (last 24 hrs) 07/09/19 19:11: PT 11.6, INR 0.98, APTT 33.3 07/09/19 19:11: WBC 8.1, Hgb 13.6, Hct 42.2, Plt Count 238 07/09/19 19:11: Sodium 141, Potassium 4.1, BUN 22 H, Creatinine 1.08, Glucose 125 H, Total Bilirubin 0.4, AST 20, ALT 19, Alkaline Phosphatase 80, Lipase 142 Assessment and Plan - Plan 69yoM admitted copd - dyspnea - concern for PAH due to significant hx of COPD; CTA negative for PE start on steroids, duonebs, IS, ABG obtain a1c, tsh and lipid profile c/w supplemental o2 PCCM consulted for eval and intervention trend CE, obtain TTE and UDS strict I/O analgesics coupled w/ stool softner LE swelling: new onset - concern for RHF doppler LE will obtain TTE and will start on diuresis if CHF noted tobacco dependence cessation consoling offered - Advance Directives Does patient have a Living Will: No Does patient have a Durable POA for Healthcare: No
[2019-07-10] MEDS ORDERED: ONDANSETRON 4 MG/2 ML VIAL IV PRN (00:33)
[2019-07-10] MEDS ORDERED: ACETAMINOPHEN 500 MG TAB PO PRN (00:33)
[2019-07-10] MEDS ORDERED: ALBUTEROL 2.5 MG/3 ML NEB SOL NEB PRN (00:33)
[2019-07-10] MEDS ORDERED: DOCUSATE NA 100 MG CAP PO PRN (00:34)
[2019-07-10 01:26] VITALS: BMI 33.6
[2019-07-10] MEDS: METHYLPREDNISOLONE 40 MG INJ IV SCH ×3 (01:51→16:25)
[2019-07-10] MEDS ORDERED: CEFTRIAXONE/SWI 1gm 1 GM/10 ML SYR ONE (01:51)
[2019-07-10] MEDS ORDERED: CEFTRIAXONE/SWI 1gm 1 GM/10 ML SYR IVP SCH (02:00)
[2019-07-10] MEDS ORDERED: CEFTRIAXONE 1 GM/NS 50 ML 1 GM/50 ML BAG IV SCH (02:00)
[2019-07-10] MEDS: ALBUTEROL 2.5 MG/3 ML NEB SOL NEB SCH ×4 (02:15→19:52)
[2019-07-10] MEDS: IPRATROPIUM BROM 0.5MG/2.5ML NEB SCH ×4 (02:15→19:52)
[2019-07-10 03:15] LABS: Urine Bacteria <20 /HPF (NONE SEEN); Urine Culture Reflex Order NOT NEEDED; Urine Mucus 1+ /HPF (NONE SEEN); Urine RBC NONE SEEN /HPF (NONE SEEN)
[2019-07-10 06:39] LABS: Absolute Lymphocytes (CBC) 0.3 K/uL (0.7-4.9); Basophils % 0.1 % (0-1.3); Hematocrit 37.3 % (39.6-49.0); Lymphocytes % 3.4 % (15.3-44.8); MPV 8.2 fL (7.6-11.3); RBC Red Blood Cell Count 4.14 M/uL (4.33-5.43)
[2019-07-10 06:41] LABS: Protime INR 1.03
[2019-07-10 07:10] LABS: ALT/SGPT 16 U/L (12-78); AST/SGOT 17 U/L (15-37); Albumin 2.9 g/dL (3.4-5.0); Alkaline Phosphatase 68 U/L (45-117); BUN Blood Urea Nitrogen 19 mg/dL (7-18); Bicarbonate 33 mmol/L (21-32); Bilirubin Total 0.4 mg/dL (0.2-1.0); Glucose Level 133 mg/dL (74-106); Magnesium 2.3 mg/dL (1.8-2.4); Potassium 4.6 mmol/L (3.5-5.1); Protein, Total 7.1 g/dL (6.4-8.2); Sodium Level 138 mmol/L (136-145); Thyroid Stimulating Hormone 0.365 uIU/mL (0.360-3.740)
[2019-07-10 07:25] LABS: CKMB Creatine Kinase MB 2.4 ng/mL (0.3-3.6); NT PRO-BNP 97 pg/mL (<125); Troponin I < 0.02 ng/mL (0.0-0.045)
[2019-07-10] MEDS: ASPIRIN EC 81 MG TAB PO SCH (09:06)
[2019-07-10 09:14] LABS: Barbiturates NEGATIVE (NEGATIVE); Benzodiazepines NEGATIVE (NEGATIVE); Cocaine NEGATIVE (NEGATIVE); METHAMPHETAM NEGATIVE (NEGATIVE); Methadone NEGATIVE (NEGATIVE); Opiates NEGATIVE (NEGATIVE); Phencyclidine NEGATIVE (NEGATIVE); THC Cannibis NEGATIVE (NEGATIVE)
[2019-07-10] MEDS ORDERED: VANCOMYCIN/NS 1 gm 1 GM/250 ML BAG IVPB SCH (10:00)
--- NOTE | 2019-07-10 10:05 | P.CNS ---
Date of Consult: 07/10/19 Chief Complaint: DYSPNEA, LE SWELLING, COPD History of Present Illness: Patient is 69 years of age with a history of COPD admitted with worsening dyspnea become progressively worse over the past 3 months. He has been following up at the [place] compliant with his inhalers on oxygen denies any fever chills in complaining of orthopnea chronic lower extremity edema that has become progressively worse denies any fever chills or chest pain admitted with an exacerbation of COPD apparently he takes Symbicort and an anticholinergic at home Allergies No Known Allergies Allergy (Unverified 11/17/16 09:20) Home Medications: Cholecalciferol (Vitamin D3) [Vitamin D 400 IU TAB*] 400 unit PO DAILY 11/17/16 Aspirin [Aspirin EC 81 MG] 81 mg PO DAILY 07/10/19 Atorvastatin Calcium [Lipitor] 20 mg PO DAILY 07/10/19 Pantoprazole [Protonix Tab*] 40 mg PO DAILY 07/10/19 Tamsulosin [Flomax*] 0.8 mg PO DAILY 07/10/19 predniSONE [Prednisone*] 10 mg PO DAILY 07/10/19 - Past Medical/Surgical History Diabetic: No -: COPD -: GERD -: HLD -: BPH -: hernia repair - Social History Smoking Status: Current every day smoker Alcohol use: No CD- Drugs: No Caffeine use: Yes Place of Residence: Home Review of Systems 10-point ROS is otherwise unremarkable Respiratory: Cough, Shortness of Breath Cardiovascular: Edema Physical Examination Temp Pulse Resp BP Pulse Ox 97.8 F 76 20 132/66 94 07/10/19 08:00 07/10/19 08:00 07/10/19 08:00 07/10/19 08:00 07/10/19 08:00 General: Alert, Oriented x3, Moderate distress Neck: Supple Respiratory: Expiratory wheezes Cardiovascular: Regular rate/rhythm, Normal S1 S2, Edema (Significant edema) Gastrointestinal: Normal bowel sounds, Soft and benign Laboratory Data (last 24 hrs) 07/09/19 19:11: PT 11.6, INR 0.98, APTT 33.3 07/09/19 19:11: WBC 8.1, Hgb 13.6, Hct 42.2, Plt Count 238 07/09/19 19:11: Sodium 141, Potassium 4.1, BUN 22 H, Creatinine 1.08, Glucose 125 H, Total Bilirubin 0.4, AST 20, ALT 19, Alkaline Phosphatase 80, Lipase 142 - Problems (1) COPD with acute exacerbation Onset Date: 11/19/16 Current Visit: No Status: Acute Plan: Patient is 69 years of age admitted with COPD exacerbation lower extremity edema there is no evidence of sepsis is mildly hypoxic hypercarbic CT scan shows COPD changes no pulmonary emboli maximize bronchodilator therapy at spironolactone echo with Doppler he appears to be clinically stable patient has a nebulizer at home maximize bronchodilator therapy no evidence of sepsis can Dc vancomycin started him on Levaquin discharge tomorrow on prednisone 10 mg twice a day this still continues to smoke he will need to be on a combination of Symbicort and an anticholinergic trilogy [facility] which [facility] him a lot I have also added spironolactone patient takes 10 mg of prednisone at home
--- NOTE | 2019-07-10 10:45 | RAD REPORT ---
EXAM DESCRIPTION: US - Extrem Venous W Compress Joey - 07/10/2019 10:03 am CLINICAL HISTORY: Shortness of breath, left leg pain and swelling COMPARISON: None. TECHNIQUE: Real-time sonographic evaluation of the bilateral lower extremity common femoral, superfi cial femoral, popliteal and posterior tibial veins was performed. FINDINGS: Normal compressibility, flow augmentation, phasic flow and spontaneous flow are identified in the left and right lower extremity common femoral, superficial femoral, popliteal and posterior t ibial veins. No intraluminal filling defects seen. IMPRESSION: No DVT in either lower extremity.
[2019-07-10 10:50] LABS: Blood Morphology Comment NOT SEEN (NOT SEEN); Platelet Estimate ADEQ; Urine White Blood Cell Casts OK
[2019-07-10] MEDS ORDERED: VANCOMYCIN 1.25 GM in NA CHLORIDE 0.9% 250 ML IVPB SCH (12:00)
[2019-07-10] MEDS: SPIRONOLACTONE 25 MG TABLET PO SCH ×2 (13:20→21:14)
[2019-07-10] MEDS: VANCOMYCIN 1.75 GM in NA CHLORIDE 0.9% 500 ML IVPB SCH (13:20)
[2019-07-10 15:15] LABS: CKMB Creatine Kinase MB 2.7 ng/mL (0.3-3.6); Troponin I < 0.02 ng/mL (0.0-0.045)
--- NOTE | 2019-07-10 15:34 | EKG ---
Test Date: 2019-07-09 Test Time: 19:12:47 Sound Assistant: ALMAZ MEASUREMENT RESULTS: Intervals: Rate: 87 RI: 130 QRSD: 84 QT: 374 QTc: 450 Climax: P: 78 RI: 130 QRS: 42 T: 74 INTERPRETIVE STATEMENTS: Sinus rhythm with premature atrial complexes Otherwise normal ECG Compared to ECG 12/13/2016 14:28:07 Right-axis deviation no longer present Electronically Signed On 07-10-19 15:31:05 [employer] by Tylor Miller
[2019-07-10] MEDS: HYDROCODONE/APAP 5/325 MG TAB PO PRN (16:26)
--- NOTE | 2019-07-10 22:57 | PN ---
Date of Progress Note: 07/10/2019 Code Status: Full. Subjective: Patient is seen and examined. Chart reviewed and case discussed with RN and Dr. Ricks. Patient states swelling in his lower extremities and redness. Medications: List reviewed. Physical Examination: Vital Signs: Blood pressure is 119/66, respirations 20, O2 of 95% on 3.5 L via nasal cannula, temperature 97.8, heart rate 79. General: Awake, alert, and oriented x3, in some mild respiratory distress. Obese male. CV: S1, S2. Regular rate and rhythm. Peripheral pulses present. Respiratory: Diminished breath sounds. Diffuse wheezing heard. Patient is tachypneic. No use of accessory muscles. Gastrointestinal: Abdomen is soft, nontender, nondistended. Positive bowel sounds. Extremities: No clubbing, cyanosis, or edema. Neuro: Nonfocal. Laboratory Data: Troponin less than 0.02. WBC 9, H and H 12.2 and 37.3, platelets 212, triglycerides 43, cholesterol 173, LDL 92, HDL 72. Blood culture and sputum culture are pending. Doppler study shows no DVT in the lower extremities. CT angio chest shows no pulmonary embolism. Assessment And Plan: A 69-year-old male with: 1. Acute on chronic respiratory failure, currently on nasal cannula with hypoxia. 2. Acute chronic obstructive pulmonary disease exacerbation, dyspnea at rest. We will continue with nebulizer treatments and steroids. Appreciate Pulmonology input. CT angio was negative for PE. Continue supplemental oxygen. Patient uses 2 L at home. Currently on 3.5 L. 3. Cellulitis. Bilateral lower extremity. Adjust IV abx. Cultures. 4. Obesity. BMI >30 5. Benign prostatic hyperplasia. We will continue tamsulosin. 6. Gastroesophageal reflux disease. Continue Protonix. 7. Mixed hyperlipidemia. Continue Lipitor. Lipid panel reviewed. 8. Deep vein thrombosis prophylaxis addressed. SA/MODL Voice ID: [id number] Report ID: [id number] MTDD
[2019-07-10 22:59] LABS: CKMB Creatine Kinase MB 2.8 ng/mL (0.3-3.6); Troponin I < 0.02 ng/mL (0.0-0.045)
[2019-07-11] MEDS: VANCOMYCIN 1.75 GM in NA CHLORIDE 0.9% 500 ML IVPB SCH ×2 (00:01→12:20)
[2019-07-11] MEDS ORDERED: CEFTRIAXONE/SWI 1gm 1 GM/10 ML SYR IVP SCH (02:00)
[2019-07-11] MEDS: ALBUTEROL 2.5 MG/3 ML NEB SOL NEB SCH ×2 (02:30→08:40)
[2019-07-11] MEDS: IPRATROPIUM BROM 0.5MG/2.5ML NEB SCH ×4 (02:30→20:25)
[2019-07-11 06:52] LABS: RBC Red Blood Cell Count 4.17 M/uL (4.33-5.43)
[2019-07-11 06:53] LABS: Absolute Lymphocytes (CBC) 0.4 K/uL (0.7-4.9); Lymphocytes % 3.5 % (15.3-44.8); MPV 8.5 fL (7.6-11.3)
[2019-07-11 06:56] LABS: ALT/SGPT 16 U/L (12-78); AST/SGOT 17 U/L (15-37); Albumin 2.8 g/dL (3.4-5.0); Alkaline Phosphatase 62 U/L (45-117); BUN Blood Urea Nitrogen 23 mg/dL (7-18); Bicarbonate 35 mmol/L (21-32); Bilirubin Total 0.4 mg/dL (0.2-1.0); Glucose Level 142 mg/dL (74-106); Potassium 4.6 mmol/L (3.5-5.1); Protein, Total 6.8 g/dL (6.4-8.2); Sodium Level 139 mmol/L (136-145)
[2019-07-11] MEDS: METHYLPREDNISOLONE 40 MG INJ IV SCH ×3 (08:28→17:51)
[2019-07-11] MEDS: SPIRONOLACTONE 25 MG TABLET PO SCH ×2 (08:28→21:14)
[2019-07-11] MEDS: ASPIRIN EC 81 MG TAB PO SCH ×2 (08:28→10:48)
[2019-07-11] MEDS: PANTOPRAZOLE 40MG TABLET PO SCH (10:48)
[2019-07-11] MEDS: TAMSULOSIN 0.4 MG SR CAP PO SCH (10:48)
[2019-07-11] MEDS: GUAIFENESIN/CODEINE 5ML UCUP PO PRN ×2 (12:21→21:15)
[2019-07-11] MEDS: LEVALBUTEROL 1.25 MG/3 ML NEB NEB SCH ×2 (15:30→20:25)
[2019-07-11] MEDS ORDERED: LEVALBUTEROL 1.25 MG/3 ML NEB NEB PRN (16:49)
--- NOTE | 2019-07-11 17:34 | PN ---
Date of Progress Note: 07/11/2019 Subjective: Patient seen and examined. Chart reviewed and case discussed with RN and Dr. Ricks. Patient's breathing is doing better, still on 3 L via nasal cannula. Complains of cough and pain on his right flank from the cough and with deep breaths. Medications: List reviewed. Physical Examination: Vital Signs: Temperature 97.2, heart rate 77, blood pressure 139/68, respirations 16, O2 96% on 2 L via nasal cannula. General: Awake, alert, oriented x3, elderly obese male in some mild distress. CV: S1, S2. Regular rate and rhythm. Peripheral pulses present. Respiratory: Diminished breath sounds. Wheezing heard. Some rhonchi is present. No stridor. No u se of accessory muscles. Gastrointestinal: Abdomen is soft, nontender, nondistended. Positive bowel sounds. Extremities: No clubbing or cyanosis. Patient has 1+ edema bilateral lower extremities. Skin: Patient has erythema of the lower extremities along with multiple abrasions. Warm to touch an d improving. Neurologic: Nonfocal. Laboratory Data: Sodium 139, potassium 4.6, chloride 102, CO2 of 35, BUN 23, creatinine 0.84, glucos e 142. Hemoglobin A1c 5.6%. Calcium 8.7, albumin 2.8. WBC 11, H and H 12.2 and 38, platelets 221, neutrophils 93.1%. Blood cultures, no growth to date. Sputum culture, normal quantity respiratory f ed. Assessment And Plan: A 69-year-old male with: 1.Acute on chronic respiratory failure, currently on 3 L via nasal cannula with hypoxia secondary to chronic obstructive pulmonary disease. 2.Chronic obstructive pulmonary disease with acute exacerbation. Continue with albuterol and ipratr opium nebulizers. Continue with IV steroids. Appreciate Pulmonology input. Inhalers have been adju sted. We will continue to wean down. Patient usually uses 2 L at home. 3.BPH. Continue tamsulosin. 4.Obesity, BMI 33. Counseled. 5.Nicotine dependence with cigarette smoking, continuous. 6.Gastroesophageal reflux disease without esophagitis. Continue Protonix. 7.Hyperlipidemia. Continue Lipitor. 8.Hyperglycemia, likely due to steroids. No history of diabetes. 9.Lower extremity cellulitis, improving. We will continue with IV antibiotics. Cultures, no growth to date. 10.Likely discharge in the next 24-48 hours depending on clinical improvement. SA/MODRobert Voice ID: [id number] Report ID: [id number]
[2019-07-11] MEDS: ATORVASTATIN 20 MG TAB PO SCH (21:15)
[2019-07-12] MEDS: VANCOMYCIN 1.75 GM in NA CHLORIDE 0.9% 500 ML IVPB SCH ×2 (00:47→11:08)
[2019-07-12] MEDS: METHYLPREDNISOLONE 40 MG INJ IV SCH ×3 (00:47→16:52)
[2019-07-12] MEDS: LEVALBUTEROL 1.25 MG/3 ML NEB NEB SCH ×4 (01:15→19:55)
[2019-07-12] MEDS: IPRATROPIUM BROM 0.5MG/2.5ML NEB SCH ×4 (01:15→19:55)
[2019-07-12] MEDS: GUAIFENESIN/CODEINE 5ML UCUP PO PRN ×3 (03:14→16:52)
[2019-07-12] MEDS: PANTOPRAZOLE 40MG TABLET PO SCH (08:28)
[2019-07-12] MEDS: ASPIRIN EC 81 MG TAB PO SCH (08:28)
[2019-07-12] MEDS: TAMSULOSIN 0.4 MG SR CAP PO SCH (08:28)
[2019-07-12] MEDS: SPIRONOLACTONE 25 MG TABLET PO SCH ×2 (08:28→21:11)
[2019-07-12] MEDS: LIDOCAINE 4% PATCH TOP SCH (08:31)
--- NOTE | 2019-07-12 10:44 | RAD REPORT ---
EXAM DESCRIPTION: RAD - Chest Single View - 07/12/2019 10:16 am CLINICAL HISTORY: Wheezing COMPARISON: July 09 TECHNIQUE: AP portable chest image was obtained 0943 hours . FINDINGS: No new or progressive right lung field finding. Patchy opacification in the left base is p resent suspicious for pneumonia. This is probably within the lingula. Heart and vasculature are normal. Right costophrenic angle blunting similar to comparison. No acute bony abnormality seen. No acute aor tic findings suspected. IMPRESSION: Suspected small pneumonia in the lingula anterior left lung base.
--- NOTE | 2019-07-12 15:17 | PN ---
Date of Progress Note: 07/12/2019 Subjective: Patient seen and examined. Chart reviewed and case discussed with RN and Dr. Ricks. Patient is still having significant shortness of breath. States he is dyspneic with minimal exertion. Complains of wheezing. Medications: List reviewed. Physical Examination: Vital Signs: Temperature 97.2, heart rate 80, blood pressure 139/66, respirations 18, O2 of 97% on 2 L via nasal cannula. General: Awake, alert, oriented x3. Elderly male, obese, appears older than stated age, ill-appearing male. CV: S1, S2. Regular rate and rhythm. Peripheral pulses present. Respiratory: Diminished breath sounds. Wheezing heard. Patient is mildly tachypneic. No use of accessory muscles. No stridor. Gastrointestinal: Abdomen is soft, nontender, nondistended. Positive bowel sounds. No guarding or rigidity. Extremities: No clubbing, cyanosis, or edema. Neurologic: Nonfocal. Laboratory Data: Sodium 139, potassium 4.6, chloride 102, CO2 of 35, BUN 23, creatinine 0.84, glucose 142, calcium 8.7. Cardiac enzymes are negative x3. Albumin 2.8. WBC 11, H and H 12.2 and 38, platelets 221, neutrophils 93%. Blood cultures, no growth to date. Sputum culture growing out respiratory gonzalez. Assessment And Plan: A 69-year-old male with: 1. Acute on chronic respiratory failure, now back to 2 L via nasal cannula. Patient has hypoxia, which is secondary to chronic obstructive pulmonary disease. 2. Acute chronic obstructive pulmonary disease exacerbation. Continue with nebulizer treatments and IV steroids. Patient is currently requiring oxygen, still very dyspneic and wheezing with minimal exertion. Appreciate Pulmonology input. 3. Elevated D-dimer. CT angio is negative for pulmonary embolism. 4. Benign prostatic hypertrophy. We will continue tamsulosin. 5. Obesity, BMI 33. Counseled. 6. Nicotine dependence with cigarette smoking, continuous. 7. Lower extremity cellulitis, improved significantly. Continue with IV antibiotics. Cultures are negative to date. 8. Hyperglycemia, likely due to steroids. A1c is 5.4%. 9. Mixed hyperlipidemia. We will continue Lipitor. 10. Gastroesophageal reflux disease without esophagitis. Continue Protonix. Plan: Ambulate and monitor O2 saturations. Repeat chest x-ray. Likely discharge in the next 24 hours depending on clinical improvement. SA/MODL Voice ID: [id number] Report ID: [id number] [email or web address]
[2019-07-12] MEDS: levoFLOXacin 500 MG TAB PO SCH (16:52)
[2019-07-12] MEDS: ATORVASTATIN 20 MG TAB PO SCH (21:10)
[2019-07-12] MEDS: HYDROCODONE/APAP 5/325 MG TAB PO PRN (21:10)
[2019-07-13] MEDS: METHYLPREDNISOLONE 40 MG INJ IV SCH ×3 (00:59→23:30)
[2019-07-13] MEDS: VANCOMYCIN 1.75 GM in NA CHLORIDE 0.9% 500 ML IVPB SCH ×2 (00:59→11:30)
[2019-07-13] MEDS: GUAIFENESIN/CODEINE 5ML UCUP PO PRN ×2 (01:19→14:40)
[2019-07-13] MEDS: IPRATROPIUM BROM 0.5MG/2.5ML NEB SCH ×4 (01:55→21:00)
[2019-07-13] MEDS: LEVALBUTEROL 1.25 MG/3 ML NEB NEB SCH ×4 (01:55→21:00)
[2019-07-13 05:54] LABS: Absolute Lymphocytes (CBC) 0.3 K/uL (0.7-4.9); Hematocrit 36.3 % (39.6-49.0); Lymphocytes % 3.4 % (15.3-44.8); MPV 8.9 fL (7.6-11.3); RBC Red Blood Cell Count 4.03 M/uL (4.33-5.43)
[2019-07-13 06:11] LABS: ALT/SGPT 16 U/L (12-78); AST/SGOT 4 U/L (15-37); Albumin 2.7 g/dL (3.4-5.0); Alkaline Phosphatase 52 U/L (45-117); BUN Blood Urea Nitrogen 26 mg/dL (7-18); Bicarbonate 34 mmol/L (21-32); Bilirubin Total 0.4 mg/dL (0.2-1.0); Glucose Level 133 mg/dL (74-106); Potassium 4.6 mmol/L (3.5-5.1); Protein, Total 6.4 g/dL (6.4-8.2); Sodium Level 138 mmol/L (136-145)
[2019-07-13] MEDS: TAMSULOSIN 0.4 MG SR CAP PO SCH (08:25)
[2019-07-13] MEDS: ASPIRIN EC 81 MG TAB PO SCH (08:26)
[2019-07-13] MEDS: LIDOCAINE 4% PATCH TOP SCH (08:26)
[2019-07-13] MEDS: SPIRONOLACTONE 25 MG TABLET PO SCH ×2 (08:26→21:02)
[2019-07-13] MEDS: PANTOPRAZOLE 40MG TABLET PO SCH (08:26)
--- NOTE | 2019-07-13 10:51 | ECHO ---
HEIGHT: 5 ft 9 in WEIGHT: 227 lb 11.2 oz DATE OF STUDY: 07/13/[address]: Luna Mcdaniel 2-DIMENSIONAL: YES M.MODE: YES DOPPLER: YES COLOR FLOW: YES TDS: PORTABLE: DEFINITY: BUBBLE STUDY: DIAGNOSIS: DYSPNEA/ CHRONIC OBSTRUCTIVE PULMONARY DISEASE CARDIAC HISTORY: CATHERIZATION: NO SURGERY: NO PROSTHETIC VALVE: NO PACEMAKER: NO MEASUREMENTS (cm) DIASTOLIC (NORMALS) SYSTOLIC (NORMALS) IVSd 1.0 (0.6-1.2) LA Diam 3.6 (1.9-4.0) LVEF 75% LVIDd 5.2 (3.5-5.7) LVIDs 2.9 (2.0-3.5) %FS 44% LVPWd 1.1 (0.6-1.2) Ao Diam 2.7 (2.0-3.7) 2 DIMENSIONAL ASSESSMENT: RIGHT ATRIUM: NORMAL LEFT ATRIUM: NORMAL RIGHT VENTRICLE: NORMAL LEFT VENTRICLE: NORMAL TRICUSPID VALVE: NORMAL MITRAL VALVE: NORMAL PULMONIC VALVE: NORMAL AORTIC VALVE: NORMAL PERICARDIAL EFFUSION: NONE AORTIC ROOT: NORMAL LEFT VENTRICULAR WALL MOTION: NORMAL DOPPLER/COLOR FLOW: TRACE MITRAL REGURGITATION COMMENTS: NORMAL 2-DIMENSIONAL ECHOCARDIOGRAM. TRACE MITRAL REGURGITATION. TECHNOLOGIST: ZACHARY VILLALTA
[2019-07-13] MEDS: levoFLOXacin 500 MG TAB PO SCH (14:40)
[2019-07-13] MEDS: DULERA 200/5 (MOMETASONE/FORMOTEROL) INHALER IH SCH (21:01)
[2019-07-13] MEDS: ATORVASTATIN 20 MG TAB PO SCH (21:02)
[2019-07-14] MEDS: IPRATROPIUM BROM 0.5MG/2.5ML NEB SCH ×5 (01:35→23:10)
[2019-07-14] MEDS: LEVALBUTEROL 1.25 MG/3 ML NEB NEB SCH ×5 (01:35→23:10)
--- NOTE | 2019-07-14 03:48 | DS ---
Date of service: 07/14/19 Director Of Employee Development: Dr. Ricks with Pulmonology. Admitting Diagnoses: 1. Acute chronic obstructive pulmonary disease exacerbation. 2. Bilateral lower extremity swelling. 3. Obesity, body mass index 33. 4. Mixed hyperlipidemia. 5. Benign prostatic hypertrophy. Discharge Diagnoses: 1. Acute on chronic respiratory failure, on 2 L via nasal cannula. 2. Acute chronic obstructive pulmonary disease exacerbation. 3. Elevated D-dimer, pulmonary embolism ruled out. 4. Benign prostatic hypertrophy. 5. Obesity, body mass index 33. 6. Nicotine dependence with cigarette smoking, continuous. 7. Lower extremity cellulitis, bilateral, improved. Cultures negative. Will finish off course of Levaquin. 8. Hyperglycemia. No diabetes. Hemoglobin A1c is 5.4%. 9. Mixed hyperlipidemia, on Lipitor. 10. Gastroesophageal reflux disease without esophagitis. Continue Protonix. 11. Pneumonia. Hospital Course: Patient is a 69-year-old male with past medical history of COPD, on 2-3 L at home, still continues to smoke, comes in with worsening shortness of breath, wheezing, as well as lower extremity swelling and redness. Patient was found to have cellulitis of the lower extremities. He was started on broad-spectrum IV antibiotics. Patient's blood cultures remained negative. Regarding his COPD, patient was started on nebulizer treatments and IV steroids. Patient initially had done well on Trelegy in the past; however, [place] does not pay for the Trelegy. His chest x-ray showed suspected small pneumonia in the lingular anterior left lung base. Overall, he did well; however, continued to be very short of breath and dyspneic with minimal exertion. He was seen by Pulmonology, Dr. Ricks. Patient was able to be weaned down from 3.5 L back to 2 L, which is his baseline. 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 Ricks's office. Patient understands now that his new baseline is dyspnea with minimal exertion. He will need to avoid any sort of strenuous activity. His steroid dose will be doubled to 10 b.i.d. Regarding his lower extremities, doppler study was negative for DVT and his CT angio did not show any PE. Patient was recommended to lose weight. Followup: He needs to follow up with his primary care physician in 2-3 days. Follow up with capacity planning manager, Dr. Ricks, in 2 weeks. Return to ER for worsening condition. Physical Examination: General: Awake, alert, oriented x3, elderly male, obese, not in any acute distress. CV: S1, S2. No murmurs. Respiratory: Minimal wheezing heard. No tachypnea. No use of accessory muscles. Gastrointestinal: Abdomen is soft, nontender, nondistended. Positive bowel sounds. Extremities: No clubbing, cyanosis, or edema. Neuro: Nonfocal. Total time spent discharging patient was 41 minutes. /SIMON Voice ID: [id number] Report ID: [id number] ESTRELLA
[2019-07-14] MEDS: VANCOMYCIN 1.75 GM in NA CHLORIDE 0.9% 500 ML IVPB SCH (05:25)
[2019-07-14] MEDS: LIDOCAINE 4% PATCH TOP SCH (08:07)
[2019-07-14] MEDS: ASPIRIN EC 81 MG TAB PO SCH (08:07)
[2019-07-14] MEDS: TAMSULOSIN 0.4 MG SR CAP PO SCH (08:07)
[2019-07-14] MEDS: PANTOPRAZOLE 40MG TABLET PO SCH (08:07)
[2019-07-14] MEDS: DULERA 200/5 (MOMETASONE/FORMOTEROL) INHALER IH SCH ×2 (08:08→20:01)
[2019-07-14] MEDS: SPIRONOLACTONE 25 MG TABLET PO SCH ×2 (08:08→20:00)
[2019-07-14] MEDS: METHYLPREDNISOLONE 40 MG INJ IV SCH (08:08)
--- NOTE | 2019-07-14 12:38 | P.PN ---
Subjective Date of Service: 07/14/19 Chief Complaint: COPD exacerbation No change since has been hospitalized and complaining of shortness of breath on mild exertion cough congestion Review of Systems General: Weakness Respiratory: Cough, Shortness of Breath Physical Examination - Vital Signs Temperature: 97.0 F Blood Pressure: 131/72 Pulse: 73 Respirations: 18 Pulse Ox (%): 99 - Physical Exam General: Alert, Oriented x3, Moderate distress Respiratory: Expiratory wheezes Cardiovascular: Regular rate/rhythm, Normal S1 S2, Edema Assessment & Plan - Problems (Diagnosis) (1) COPD with acute exacerbation Onset Date: 11/19/16 Current Visit: No Status: Acute Plan: Patient admitted with COPD exacerbation he is not improving I recommend adding some Dalresp to p.o. prednisone continue with levofloxacin Dc vancomycin patient is on Dulera 2 puffs twice a day no evidence of active ongoing sepsis patient is mildly hypercapnic oxygenation and blood pressure is stable prognosis poor patient did respond to Dalresp that was not [facility] by the [facility] I will try and fax is medications obtained from my office to the CT
[2019-07-14] MEDS: ROFLUMILAST 500 MCG TABLET PO SCH (13:03)
[2019-07-14] MEDS: levoFLOXacin 500 MG TAB PO SCH (14:45)
--- NOTE | 2019-07-14 17:58 | PN ---
Date of Progress Note: 07/14/2019 Subjective: Patient is seen and examined chart reviewed and case discussed with RN and Dr. Ricks. Patient was discharged yesterday; however, patient had some worsening shortness of breath and there fore did not go home. Medication List: Reviewed. Physical Examination: Vital Signs: Temperature 97, heart rate 73, blood pressure 131/72, respirations 18, O2 99% on 3 L vi a nasal cannula. General: Awake, alert, oriented x3, ill-appearing male, obese, in some mild respiratory distress. CV: S1, S2. Regular rate and rhythm. Peripheral pulses weak. Respiratory: Diminished breath sounds. Minimal wheezing is present. No tachypnea. No use of acces ethan muscles or stridor. Gastrointestinal: Abdomen is soft, nontender, nondistended. Positive bowel sounds. Extremities: No clubbing, cyanosis, or edema. Neurologic: Nonfocal. Laboratory Data: Blood cultures and sputum cultures negative to date. Assessment And Plan: 69-year-old male with: 1.Acute on chronic respiratory failure, currently on 2 L via nasal cannula secondary to chronic obst ructive pulmonary disease. 2.Acute chronic obstructive pulmonary disease exacerbation. We will continue with steroids, nebuliz er treatments. Patient was added on Dulera. Patient unable to get trilogy as [facility] to the [facility]. However, we will get samples from Pulmonology office. 3.Benign prostatic hypertrophy. Continue home medications. 4.Nicotine dependence with cigarette smoking, continuous. 5.Lower extremity cellulitis, bilateral, improved. Cultures are negative. Complete course of Levaq uin at home. 6.Obesity, BMI 33. 7.Elevated D-dimer, pulmonary embolism ruled out. 8.Hyperglycemia. Hemoglobin A1c is 5.4% likely due to steroids. 9.Hyperlipidemia. Continue Lipitor. 10.Gastroesophageal reflux disease without esophagitis. Continue Protonix. 11.Pneumonia, left lung base, on Levaquin. Plan: Due to patient's deconditioning and significant dyspnea with minimal exertion, patient will be nefit from detention facility placement. We will consult Social Work. SA/MODL Voice ID: [id number] Report ID: [id number]
[2019-07-14] MEDS: ATORVASTATIN 20 MG TAB PO SCH (20:00)
[2019-07-14] MEDS: predniSONE 20 MG TAB PO SCH (20:01)
[2019-07-14] MEDS: GUAIFENESIN/CODEINE 5ML UCUP PO PRN (20:08)
[2019-07-15] MEDS: VANCOMYCIN 1.75 GM in NA CHLORIDE 0.9% 500 ML IVPB SCH (00:05)
[2019-07-15 06:14] LABS: Absolute Lymphocytes (CBC) 0.3 K/uL (0.7-4.9); Basophils % 0.3 % (0-1.3); Lymphocytes % 2.8 % (15.3-44.8); MPV 9.3 fL (7.6-11.3); RBC Red Blood Cell Count 4.33 M/uL (4.33-5.43)
[2019-07-15 06:21] LABS: Albumin 2.8 g/dL (3.4-5.0); Bilirubin Total 0.5 mg/dL (0.2-1.0); Potassium 4.6 mmol/L (3.5-5.1); Protein, Total 6.2 g/dL (6.4-8.2)
[2019-07-15] MEDS: LEVALBUTEROL 1.25 MG/3 ML NEB NEB SCH ×2 (07:45→13:05)
[2019-07-15] MEDS: IPRATROPIUM BROM 0.5MG/2.5ML NEB SCH ×2 (07:45→13:05)
[2019-07-15] MEDS ORDERED: FUROSEMIDE 40 MG TABLET PO SCH (09:00)
[2019-07-15] MEDS: LIDOCAINE 4% PATCH TOP SCH (09:23)
[2019-07-15] MEDS: predniSONE 20 MG TAB PO SCH (09:24)
[2019-07-15] MEDS: TAMSULOSIN 0.4 MG SR CAP PO SCH (09:24)
[2019-07-15] MEDS: ASPIRIN EC 81 MG TAB PO SCH (09:24)
[2019-07-15] MEDS: SPIRONOLACTONE 25 MG TABLET PO SCH (09:25)
[2019-07-15] MEDS: PANTOPRAZOLE 40MG TABLET PO SCH (09:25)
[2019-07-15] MEDS: DULERA 200/5 (MOMETASONE/FORMOTEROL) INHALER IH SCH (09:27)
[2019-07-15] MEDS: GUAIFENESIN/CODEINE 5ML UCUP PO PRN ×2 (09:39→16:13)
[2019-07-15] MEDS: ROFLUMILAST 500 MCG TABLET PO SCH (09:39)
[2019-07-15 10:10] VITALS: O2SAT 98
[2019-07-15 12:10] VITALS: TEMP 97.7
[2019-07-15] MEDS ORDERED: LEVALBUTEROL 1.25 MG/3 ML NEB NEB PRN (14:00)
--- NOTE | 2019-07-15 14:04 | P.PN ---
Subjective Date of Service: 07/15/19 Primary Care Provider: [facility] Chief Complaint: COPD exacerbation Subjective: Improving Physical Examination - Vital Signs Temperature: 97.7 F Blood Pressure: 123/58 Pulse: 76 Respirations: 20 Pulse Ox (%): 98 - Physical Exam General: Alert, In no apparent distress, Oriented x3 HEENT: Atraumatic Neck: Supple Respiratory: Expiratory wheezes Cardiovascular: Normal pulses, Regular rate/rhythm Gastrointestinal: Normal bowel sounds, Soft and benign, Non-distended, No tenderness, No masses, No rebound, No guarding Integumentary: Other (Some ecchymosis to the right hip region) Neurological: Normal speech, Normal strength at 5/5 x4 extr, Normal tone, Normal affect - Studies Microbiology Data (last 24 hrs): 07/09/19 19:21 Blood - Blood Aerobic Blood Culture - Final No growth in 5 days. 07/09/19 19:21 Blood - Blood Anaerobic Blood Culture - Final No growth in 5 days. 07/09/19 19:11 Blood - Blood Aerobic Blood Culture - Final No growth in 5 days. 07/09/19 19:11 Blood - Blood Anaerobic Blood Culture - Final No growth in 5 days. Medications List Reviewed: Yes Assessment & Plan Discharge Plan: Other ([facility] facility) Plan to discharge in: 24 Hours Physician Review Additional Text: Impression: Acute on chronic respiratory failure secondary to COPD exacerbation on chronic oxygen complicated with left base pneumonia and chronic diastolic CHF BPH Tobacco abuse Bilateral lower extremity edema Pre diabetes Hyperlipidemia GERD Ecchymosis right flank region Plan: Acute on chronic respiratory failure secondary to COPD exacerbation on chronic oxygen complicated with left base pneumonia and chronic diastolic CHF.: Patient has significantly improved. Continue to wean off oxygen. Patient does use home oxygen. Continue antibiotic therapy-Levaquin. Continue COPD medication. Pulmonology has added Daliresp to his regimen. Will continue with diuresis. Continue 1500 cc per day fluid restriction. Patient currently on Aldactone. Will add Lasix. Awaiting approval for skilled placement facility. Patient can be discharge to skilled placement once approved. BPH: Continue medication Tobacco abuse: Continue tobacco cessation education Bilateral lower extremity edema: Continue with diuretic therapy. Pre diabetes: A1c 5.4. Will monitor closely. Hyperlipidemia: Continue medication GERD: Continue medication. Ecchymosis right flank region: Patient reports no recent fall. Will obtain KUB. No abdominal pain noted. Will monitor closely. Will continue with DVT prophylaxis-Lovenox Time Spent Managing Pts Care (In Minutes): 55
--- NOTE | 2019-07-15 14:12 | RAD REPORT ---
EXAM DESCRIPTION: RAD - Abdomen 1 View (KUB) - 07/15/2019 2:04 pm CLINICAL HISTORY: new large bruise Pain COMPARISON: No comparisons FINDINGS: The bowel gas pattern is non-obstructive. No evidence of free air or pneumatosis. No suspi cious calcifications. No significant bony findings. Significant fecal retention is present in the colon. IMPRESSION: Prominent fecal retention in the colon.
[2019-07-15] MEDS: HYDROCODONE/APAP 5/325 MG TAB PO PRN (14:14)
[2019-07-15] MEDS: levoFLOXacin 500 MG TAB PO SCH (14:14)
--- NOTE | 2019-07-15 15:00 | P.DS ---
Admission Date: 07/10/19 Discharge Date: 07/15/19 Primary Care Provider: [facility] Disposition: TRANSFER TO SNF - MEDICAL Discharge Condition: FAIR Reason for Admission: COPD exacerbation Consultations: Pulmonary-Dr. Ricks Procedures: CT Chest: COMPARISON: 2016 TECHNIQUE: Dynamically enhanced axial 3 mm thick images of the chest were obtained during administration of <100> mL Isovue 370 IV contrast. Coronal and oblique reconstruction images were generated and reviewed. Exam utilizes a protocol for optimal evaluation of pulmonary arterial tree. Maximum intensity projections 3D imaging was utilized All CT scans are performed using dose optimization technique as appropriate and may include automated exposure control or mA/KV adjustment according to patient size. FINDINGS: The evaluation of the subsegmental pulmonary arteries is somewhat limited secondary to respiratory artifact A pulmonary embolus is not seen. A thoracic aortic aneurysm is not noted. A pleural effusion is not seen. A pericardial effusion is not seen. A lung consolidation is not present. Centrilobular and paraseptal emphysema IMPRESSION: A pulmonary embolism is not visualized copd ECHO: ejection fraction 75% LEFT VENTRICULAR WALL MOTION: NORMAL DOPPLER/COLOR FLOW: TRACE MITRAL REGURGITATION COMMENTS: NORMAL 2-DIMENSIONAL ECHOCARDIOGRAM. TRACE MITRAL REGURGITATION. KUB: FINDINGS: The bowel gas pattern is non-obstructive. No evidence of free air or pneumatosis. No suspicious calcifications. No significant bony findings. Significant fecal retention is present in the colon. IMPRESSION: Prominent fecal retention in the colon. Follow up CXR: FINDINGS: No new or progressive right lung field finding. Patchy opacification in the left base is present suspicious for pneumonia. This is probably within the lingula. Heart and vasculature are normal. Right costophrenic angle blunting similar to comparison. No acute bony abnormality seen. No acute aortic findings suspected. IMPRESSION: Suspected small pneumonia in the lingula anterior left lung base. 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 Patient presented with increasing shortness of breath, congestion. Shortness of breath got worse. Patient was seen and evaluated in the emergency room and admitted for suspected COPD exacerbation with possible pneumonia. Hospital Course: Patient admitted for acute on chronic respiratory failure secondary to COPD exacerbation on chronic oxygen and steroids. During the course of his stay he was found to have left base pneumonia. Echocardiogram indicated diastolic CHF. The patient was seen by pulmonology. His condition improved with therapy. He was placed on Aldactone and Lasix for diuretics. Pulmonology added Daliresp for his COPD. He was to go home but the patient was still weak requiring skilled placement. At discharge patient will go to skilled facility to continue his care. Patient on chronic oxygen at home. For his COPD, He will continue with oxygen to maintain sats above 93%. For his COPD he will continue with Trelegy 1 puff daily, Daliresp 500 mcg daily, and Xopenex 2 puffs 3 times a day as needed for shortness of breath. Patient on chronic steroids. He will continue with prednisone 20 mg 1 pill twice daily for 5 days then 1 pill once daily for 5 days. Thereafter he may continue with prednisone 10 mg daily. For his CHF he will continue with a 1500 cc per day fluid restriction. Patient will continue with Aldactone 25 mg 1 pill twice daily and Lasix 40 mg daily. He is to monitor his weight daily. If his weight increases by more than 5 lb he is to contact his PCP or pulmonology for further recommendation. For his pneumonia he will continue with Levaquin 500 mg daily for 5 more days. Recommend to follow up with pulmonology in 1-2 weeks to follow up this hospitalization. Patient with BPH. At discharge he will continue with his medication Flomax 0.8 mg daily. Patient with tobacco abuse. Tobacco cessation addressed in detail. Patient with lower extremity edema likely related to CHF. Patient will continue with above recommendations. Patient with pre diabetes. A1c 5.4. Patient should be monitored closely on steroids. Recommend to recheck A1c in 3-6 months. Patient with hyperlipidemia. Patient will continue with medication Lipitor 20 mg daily. Patient with GERD. Patient will continue with medication Protonix 40 mg daily. Patient had ecchymoses to the right flank. KUB unremarkable. No pain noted. No need for further evaluation. This is to be monitored closely. Vital Signs/Physical Exam: Temp Pulse Resp BP Pulse Ox 97.7 F 76 20 123/58 L 98 07/15/19 14:04 07/15/19 14:04 07/15/19 14:14 07/15/19 14:04 07/15/19 14:14 General: Alert, In no apparent distress, Oriented x3, Cooperative HEENT: Atraumatic Neck: Supple Respiratory: Clear to auscultation bilaterally, Normal air movement Cardiovascular: Normal pulses, Regular rate/rhythm Gastrointestinal: Normal bowel sounds, Soft and benign, Non-distended Integumentary: Other (Ecchymosis noted to the right flank) Neurological: Normal speech, Normal strength at 5/5 x4 extr, Normal tone, Normal affect Laboratory Data at Discharge: WBC 10.7 K/uL (4.3-10.9) D 07/15/19 05:29 Hgb 12.9 g/dL (13.6-17.9) L 07/15/19 05:29 Hct 39.0 % (39.6-49.0) L 07/15/19 05:29 Plt Count 233 K/uL (152-406) 07/15/19 05:29 PT 12.1 SECONDS (9.5-12.5) 07/10/19 06:18 INR 1.03 07/10/19 06:18 APTT 33.3 SECONDS (24.3-36.9) 07/09/19 19:11 Sodium 140 mmol/L (136-145) 07/15/19 05:29 Potassium 4.6 mmol/L (3.5-5.1) 07/15/19 05:29 BUN 27 mg/dL (7-18) H 07/15/19 05:29 Creatinine 0.94 mg/dL (0.55-1.3) 07/15/19 05:29 Glucose 123 mg/dL (74-106) H 07/15/19 05:29 Magnesium 2.3 mg/dL (1.8-2.4) 07/10/19 06:18 Total Bilirubin 0.5 mg/dL (0.2-1.0) 07/15/19 05:29 AST 16 U/L (15-37) 07/15/19 05:29 ALT 21 U/L (12-78) 07/15/19 05:29 Alkaline Phosphatase 52 U/L (45-117) 07/15/19 05:29 Troponin I < 0.02 ng/mL (0.0-0.045) 07/10/19 22:22 Triglycerides 43 mg/dL (<150) 07/10/19 06:18 Cholesterol 173 mg/dL (<200) 07/10/19 06:18 HDL Cholesterol 72 mg/dL (40-60) H 07/10/19 06:18 Cholesterol/HDL Ratio 2.40 07/10/19 06:18 Lipase 142 U/L (73-393) 07/09/19 19:11 Home Medications: Cholecalciferol (Vitamin D3) [Vitamin D 400 IU TAB*] 400 unit PO DAILY 11/17/16 Aspirin [Aspirin EC 81 MG] 81 mg PO DAILY 07/10/19 Atorvastatin Calcium [Lipitor] 20 mg PO DAILY 07/10/19 Pantoprazole [Protonix Tab*] 40 mg PO DAILY 07/10/19 Tamsulosin [Flomax*] 0.8 mg PO DAILY 07/10/19 Docusate [Colace Cap*] 100 mg PO DAILY PRN cap 07/13/19 Fluticasone/Umeclidin/Vilanter [Trelegy Ellipta 100-62.5-25] 1 each IH DAILY # 30 blst.w.dev 07/13/19 Guaifen W/Codeine Syrup [ROBITUSSIN A-C Syrup*] 5 ml PO QID PRN #1 bottle Lidocaine 4% Patch [Lidoderm 5% Patch*] 1 patch TOP DAILY #7 patch 07/13/19 Spironolactone [Aldactone*] 25 mg PO BID #30 tab 07/13/19 levoFLOXacin [Levaquin*] 500 mg PO DAILY #5 tab 07/13/19 Furosemide [Lasix*] 40 mg PO DAILY #30 tab 07/15/19 Levalbuterol [Xopenex*] 1.25 mg NEB [id number] vial 07/15/19 Roflumilast [Daliresp*] 500 mcg PO DAILY #30 tablet 07/15/19 predniSONE [Deltasone*] 10 mg PO DAILY #30 tab 07/15/19 predniSONE [Prednisone*] 20 mg PO SEECOM #15 tab 07/15/19 New Medications: Fluticasone/Umeclidin/Vilanter [Trelegy Ellipta 100-62.5-25] 1 each IH DAILY # 30 blst.w.dev Furosemide [Lasix*] 40 mg PO DAILY #30 tab Guaifen W/Codeine Syrup [ROBITUSSIN A-C Syrup*] 5 ml PO QID PRN #1 bottle PRN Reason: Cough levoFLOXacin [Levaquin*] 500 mg PO DAILY #5 tab Lidocaine 4% Patch [Lidoderm 5% Patch*] 1 patch TOP DAILY #7 patch predniSONE [Deltasone*] 10 mg PO DAILY #30 tab predniSONE [Prednisone*] 20 mg PO SEECOM #15 tab Roflumilast [Daliresp*] 500 mcg PO DAILY #30 tablet Spironolactone [Aldactone*] 25 mg PO BID #30 tab Patient Discharge Instructions: 1. Patient will go to skilled facility continue therapy. 2. Patient admitted for acute on chronic respiratory failure secondary to COPD exacerbation on chronic oxygen and steroids. During the course of his stay he was found to have left base pneumonia. Echocardiogram indicated diastolic CHF. The patient was seen by pulmonology. His condition improved with therapy. He was placed on Aldactone and Lasix for diuretics. Pulmonology added Daliresp for his COPD. He was to go home but the patient was still weak requiring skilled placement. At discharge patient will go to skilled facility to continue his care. Patient on chronic oxygen at home. For his COPD, He will continue with oxygen to maintain sats above 93%. For his COPD he will continue with Trelegy 1 puff daily, Daliresp 500 mcg daily , and Xopenex 2 puffs 3 times a day as needed for shortness of breath. Patient on chronic steroids. He will continue with prednisone 20 mg 1 pill twice daily for 5 days then 1 pill once daily for 5 days. Thereafter he may continue with prednisone 10 mg daily. For his CHF he will continue with a 1500 cc per day fluid restriction. Patient will continue with Aldactone 25 mg 1 pill twice daily and Lasix 40 mg daily. He is to monitor his weight daily. If his weight increases by more than 5 lb he is to contact his PCP or pulmonology for further recommendation. For his pneumonia he will continue with Levaquin 500 mg daily for 5 more days. Recommend to follow up with pulmonology in 1-2 weeks to follow up this hospitalization. 3. Patient with BPH. At discharge he will continue with his medication Flomax 0.8 mg daily. 4. Patient with tobacco abuse. Tobacco cessation addressed in detail. 5. Patient with lower extremity edema likely related to CHF. Patient will continue with above recommendations. 6. Patient with pre diabetes. A1c 5.4. Patient should be monitored closely on steroids. Recommend to recheck A1c in 3-6 months. Patient with hyperlipidemia. Patient will continue with medication Lipitor 20 mg daily. 7. Patient with GERD. Patient will continue with medication Protonix 40 mg daily. 8. Patient had ecchymoses to the right flank. KUB unremarkable. No pain noted. No need for further evaluation. This is to be monitored closely. f /up w PCP in within 1 week. f/up w buttonhole maker hand Dr. Ricks in 2 weeks. supervisor coating samples from Dr. Eckert office Diet: AHA Activity: Ad kam (no strenuous activity) Time spent managing pt's care (in minutes): 55
[2019-07-15 16:24] VITALS: BP 120/60
[2019-07-15] MEDS ORDERED: ENOXAPARIN 30 MG/0.3 ML SQ SCH (17:00)
== END 2019-07-15 17:09 | DRG 189 ==
LOC: ER 18:53 → ERHOLD 07-10 00:34 → 4TH 07-10 00:51
PROVIDERS: ADMIT Internal Medicine; ATTEND Family Medicine
DX: J96.21 Acute and chronic respiratory failure with hypoxia (principal); J18.9 Pneumonia, unspecified organism; J44.1 Chronic obstructive pulmonary disease with (acute) exacerbation; L03.116 Cellulitis of left lower limb; L03.115 Cellulitis of right lower limb; I50.32 Chronic diastolic (congestive) heart failure; R73.03 Prediabetes; E66.9 Obesity, unspecified; N40.0 Benign prostatic hyperplasia without lower urinary tract symptoms; E78.2 Mixed hyperlipidemia; K21.9 Gastro-esophageal reflux disease without esophagitis; F17.210 Nicotine dependence, cigarettes, uncomplicated; R73.9 Hyperglycemia, unspecified; Z68.33 Body mass index [BMI] 33.0-33.9, adult; Z99.81 Dependence on supplemental oxygen; Z79.52 Long term (current) use of systemic steroids
CPT/HCPCS: 36415; 71045; 71275; 74018; 80048; 80053; 80061; 80076; 80202; 80307; 81015; 82550; 82553; 82805; 82947; 83036; 83605; 83690; 83735; 83880; 84145; 84443; 84484; 85025; 85379; 85610; 85730; 87040; 87070; 87205; 93005; 93306; 93970; 94640; 97112; 97116; 97161; 99285; J0696; J2920; J7030; J7040; J7512; J7606; Q9967